=== PATIENT | male | born 1950 | race Caucasian/White ===

== ENCOUNTER → 2017-10-18 10:34 | Outpatient (CLI) | payer MEDICARE, OTHER, SELFPAY ==
--- NOTE | 2017-10-18 10:38 | DI.RAD.S_ITS ---
PROCEDURE: XR WRIST LT MIN 3V INDICATIONS: dorsal wrist deformity, previous untreated fracture TECHNIQUE: 4 views of the wrist were acquired. COMPARISON: None. FINDINGS: Bones: No acute fractures or dislocations. No suspicious bony lesions. Prominent dorsal beaking at the carpometacarpal junction on lateral view. This appears to involve the base of the second metacarpal. There is mild joint degeneration at triscaphe and basilar joint of the thumb. Scaphoid view: Normal scaphoid Soft tissues: No suspicious soft tissue calcifications. IMPRESSION: 1. Bony deformity over the dorsum of the carpometacarpal junction and laterally. 2. Mild lateral degenerative joint disease. Dictated by: Jb Davis M.D. on 10/18/2017 at 11:10 Approved by: Jb Davis M.D. on 10/18/2017 at 11:13
--- NOTE | 2017-10-18 10:38 | DI.RAD.S_ITS ---
PROCEDURE: XR HAND LT MIN 3V INDICATIONS: acute ring finger pain and weakness TECHNIQUE: 3 views of the hand(s) acquired. COMPARISON: None. FINDINGS: Bones: No fractures or dislocations. No osseous or joint abnormality seen involving the fourth ray. Carpal bones are normally aligned. No suspicious bony lesions. Prominent dorsal beaking is noted at the carpal metacarpal junction on lateral view. There is apparent joint degeneration at the triscaphe and first carpometacarpal joints. Soft tissues: No suspicious soft tissue calcifications. IMPRESSION: 1. No acute osseous abnormality. 2. Arthritic changes at the carpal/metacarpal junction laterally. Dictated by: Jb Davis M.D. on 10/18/2017 at 11:07 Approved by: Jb Davis M.D. on 10/18/2017 at 11:10
== END ==
PROVIDERS: Visit Provider Family Medicine
DX: M19.042 Primary osteoarthritis, left hand (principal); M19.032 Primary osteoarthritis, left wrist; M79.645 Pain in left finger(s)
CPT/HCPCS: 73110; 73130

== ENCOUNTER 2017-12-05 11:47 | Emergency (ER) | payer MEDICARE, OTHER, SELFPAY ==
[2017-12-05 11:50] VITALS: BP 160/80; PULSE 70; RESP 18; TEMP 36.7; O2SAT 99
--- NOTE | 2017-12-05 12:17 | ED_ITS ---
HPI - Abdominal Pain <Lotus Perez PA-C - Last Filed: 12/05/17 19:34> General Chief Complaint: Abdominal Pain Stated Complaint: POSSIBLE APPENDICITIS Time Seen by Provider: 12/05/17 12:16 Source: patient and family Mode of arrival: ambulatory Limitations: no limitations History of Present Illness HPI narrative: This 67 male comes in for evaluation of abdominal pain. States he was not able to see his PCP and walk-in clinic directed him here. He states he has had pain for 3 days, initially more midline and felt like a pulled muscle , but for the last 24 hr has been worsening and now is on the right side, also can feel it in his back on the right side, can't tell whether this radiates. He states that he is comfortable now at rest, but thinks that moving and bumping /walking increased pain. He states he has not eaten since 6 o'clock last night due to less appetite than usual. He states he had some brief heaves and nausea earlier, otherwise no nausea or vomiting. He states he has felt somewhat chilled today, no known fevers at home. He denies any chest pain or dyspnea, has had a bit of a dry cough developed in the last 24 hr. He denies any new pain or swelling in the extremities. He denies any dysuria, hematuria or other new urinary symptoms. He denies any change in bowel movements or blood in the stools or other complaints on systems review aside from salivating more Related Data Home Medications Medication Instructions Recorded Confirmed vit C,S-Dc-vvoag-lutein-zeaxan 1 tab PO BID 12/05/17 12/05/17 [PreserVision AREDS 2] Allergies Allergy/AdvReac Type Severity Reaction Status Date / Time No Known Drug Allergies Allergy Verified 10/18/17 09:48 Review of Systems <Lotus Perez PA-C - Last Filed: 12/05/17 19:34> Review of Systems All systems reviewed & are unremarkable except as noted in HPI and below Exam <Lotus Perez PA-C - Last Filed: 12/05/17 19:34> Narrative Exam Narrative: GENERAL APPEARANCE: Patient sitting comfortably, in no distress. HEENT: PERRL, EOMI, no scleral icterus, normal oropharynx NECK: Supple LUNGS: Clear to auscultation bilaterally. HEART: Rate and rhythm regular, normal S1 and S2, no S3 or S4. ABDOMEN: Soft, nondistended, bowel sounds present x 4 quadrants, no masses palpable, no hepatosplenomegaly. Exquisitely tender over the right mid to lower quadrants, some rebound, no guarding. Negative Hernandez sign. No tenderness on the left side. +right CVAT, none on the left EXTREMITIES: No edema, no cyanosis, no calf tenderness DERMATOLOGIC: No jaundice or exanthem NEUROLOGIC: Alert and oriented with normal speech and coordination Initial Vital Signs Initial Vital Signs: Vital Signs Temperature 98.1 F 12/05/17 11:50 Pulse Rate 70 12/05/17 11:50 Respiratory Rate 18 12/05/17 11:50 Blood Pressure 160/80 H 12/05/17 11:50 Pulse Oximetry 99 12/05/17 11:50 <Trina Solorzano DO - Last Filed: 12/06/17 07:55> Initial Vital Signs Initial Vital Signs: Vital Signs Temperature 98.1 F 12/05/17 11:50 Pulse Rate 70 12/05/17 11:50 Respiratory Rate 18 12/05/17 11:50 Blood Pressure 160/80 H 12/05/17 11:50 Pulse Oximetry 99 12/05/17 11:50 Course <Lotus Perez PA-C - Last Filed: 12/05/17 19:34> Additional Information: I reviewed findings and exam with Dr. Solorzano. Patient is feeling improved. She is agreeable with plan to discharge home, and we have scheduled follow-up with patient's PCP tomorrow morning. He and his both agreed that he would return if any acutely worsening symptoms, or new symptoms such as vomiting or fever Orders Ordered: Discontinued Medications Ketorolac Tromethamine (Toradol) 30 mg IV NOW ONE Stop: 12/05/17 12:37 Last Admin: 12/05/17 12:51 Dose: 30 mg Vital Signs - 8 hr 12/05/17 11:50 12/05/17 13:30 12/05/17 14:49 Temperature 98.1 F Pulse Rate 70 56 L 58 L Respiratory Rate 18 22 Blood Pressure 160/80 H Blood Pressure [Left Arm] 155/89 H 157/82 H Pulse Oximetry 99 93 98 12/05/17 15:57 Temperature Pulse Rate 55 L Respiratory Rate 16 Blood Pressure Blood Pressure [Left Arm] 156/84 H Pulse Oximetry 99 <Trina Solorzano DO - Last Filed: 12/06/17 07:55> Orders Ordered: Discontinued Medications Ketorolac Tromethamine (Toradol) 30 mg IV NOW ONE Stop: 12/05/17 12:37 Last Admin: 12/05/17 12:51 Dose: 30 mg Vital Signs - 8 hr 12/05/17 11:50 12/05/17 13:30 12/05/17 14:49 Temperature 98.1 F Pulse Rate 70 56 L 58 L Respiratory Rate 18 22 Blood Pressure 160/80 H Blood Pressure [Left Arm] 155/89 H 157/82 H Pulse Oximetry 99 93 98 12/05/17 15:57 Temperature Pulse Rate 55 L Respiratory Rate 16 Blood Pressure Blood Pressure [Left Arm] 156/84 H Pulse Oximetry 99 MDM - Abdominal Pain <Lotus Perez PA-C - Last Filed: 12/05/17 19:34> Lab Data Attestation: I reviewed the patient's lab results. Result diagrams: 12/05/17 12:49 12/05/17 12:49 Lab Results 12/05/17 12/05/17 12/05/17 Range/Units 12:49 12:49 13:10 WBC 6.8 (4.5-11.0) X10^3/uL RBC 4.72 (4.5-5.9) X10^6/uL Hgb 14.7 (13.5-17.5) g/dL Hct 43.6 (41-53) % MCV 92.5 (80-100) fL MCH 31.3 (26-34) PG MCHC 33.8 (30-36) % RDW 13.5 (11.6-14.8) % Plt Count 198 (150-400) X10^3/uL Neut % (Auto) 69.9 (50-75) % Lymph % (Auto) 17.4 L (25-40) % Baxter % (Auto) 9.8 (3-14) % Eos % (Auto) 2.2 (2-4) % Baso % (Auto) 0.7 (0-2) % Neut # (Auto) 4800 (3711-3959) /uL Sodium 143 (137-145) mmol/L Potassium 4.8 (3.4-5.1) mmol/L Chloride 106 (98-107) mmol/L Carbon Dioxide 29 (22-32) mmol/L BUN 14 (9-20) mg/dL Creatinine 0.80 (0.66-1.25) mg/dL Estimated GFR > 60.0 (>60) mL/min BUN/Creatinine Ratio 17.5 (6-22) Glucose 102 (80-110) mg/dL Lactate 1.2 (0.7-2.1) mmol/L Calcium 9.0 (8.4-10.2) mg/dL Total Bilirubin 1.0 (0.2-1.3) mg/dL AST 21 (17-59) IU/L ALT 23 (21-72) IU/L Alkaline Phosphatase 39 (38-126) U/L Total Protein 7.0 (6.3-8.2) g/dL Albumin 4.2 (3.5-5.0) g/dL Globulin 2.8 (1.7-4.1) g/dL Albumin/Globulin Ratio 1.5 (1.0-2.8) Lipase 60 (23-300) U/L Point of care testing: Urine Dip Bedside Urine Glucose Negative Bedside Urine Bilirubin - Negative Bedside Urine Ketone - Negative Urine Specific [place] 1.015 Bedside Urine Occult Blood - Negative Bedside Urine pH 6.0 Bedside Urine Protein - Negative Bedside Urine Urobilinogen - Negative Bedside Urine Nitrite - Negative Bedside Urine Leukocytes - Negative Esterase Imaging Data CT scan - abdomen: Radiologist's impression: View Report History [address] [address] [address] Scan Report Signed Patient: Bari Ellis MR#: [id number] : 1950 Acct:[id number] Age/Sex: 67 / M Date of Service: 12/05/17 Loc: ED Accession Number: [id number] Procedure: CT abdomen pelvis w con Ordering Provider: Lotus Perez P.A-C PROCEDURE: CT ABDOMEN PELVIS W CON INDICATIONS: right lower quad abd, flank pain TECHNIQUE: After the administration of oral and intravenous contrast, 5 mm thick sections acquired from the diaphragms to the symphysis. 5 mm thick coronal and sagittal reformats were performed. For radiation dose reduction, the following was used: automated exposure control, adjustment of mA and/or kV according to patient size. COMPARISON: None. FINDINGS: Image quality: Excellent. ABDOMEN: Lung bases: Lung bases are clear. Heart size is normal. Solid organs: Liver is normal in size and enhancement. Gallbladder is unremarkable. Biliary system is non-dilated. Pancreas enhances normally. Spleen is normal in size and enhancement. No adrenal nodules. Kidneys are normal in size and enhancement, without hydronephrosis. There is trace perinephric fat stranding. No striated nephrograms to suggest pyelonephritis. A low density cyst is present at the upper pole of the right kidney. Peritoneum and bowel: Stomach, small bowel, and colon loops are normal in caliber and wall thickness. The appendix is thin walled and gas filled. There are scattered sigmoid diverticula. No evidence for diverticulitis. No free fluid or air. Nodes and vessels: No retroperitoneal or mesenteric adenopathy. Aorta and inferior vena cava are normal in caliber. Miscellaneous: No ventral hernias. PELVIS: Genitourinary: Bladder is decompressed. There is trace perivesicular fat stranding. Miscellaneous: No inguinal adenopathy. There are small bilateral fat containing inguinal hernias. Bones: No suspicious bony lesions. No vertebral body compression fractures. IMPRESSION: 1. Mild perivesicular fat stranding. It is unclear whether this is related to bladder decompression or may represent early cystitis. Please correlate with urinalysis. 2. No other acute intra-abdominal findings. Normal appendix. 3. No hydronephrosis, hydroureter, or ureterolithiasis to explain flank pain. 4. Diverticulosis. No acute diverticulitis. These findings were discussed with Erlinda Hravey RN at 3:08 PM on 12/05/17. Dictated by: Nuzhat Martin M.D. on 12/05/2017 at 15:02 Approved by: Nuzhat Martin M.D. on 12/05/2017 at 15:11 <Trina Solorzano DO - Last Filed: 12/06/17 07:55> Lab Data Lab Results 12/05/17 12/05/17 12/05/17 Range/Units 12:49 12:49 13:10 WBC 6.8 (4.5-11.0) X10^3/uL RBC 4.72 (4.5-5.9) X10^6/uL Hgb 14.7 (13.5-17.5) g/dL Hct 43.6 (41-53) % MCV 92.5 (80-100) fL MCH 31.3 (26-34) PG MCHC 33.8 (30-36) % RDW 13.5 (11.6-14.8) % Plt Count 198 (150-400) X10^3/uL Neut % (Auto) 69.9 (50-75) % Lymph % (Auto) 17.4 L (25-40) % Baxter % (Auto) 9.8 (3-14) % Eos % (Auto) 2.2 (2-4) % Baso % (Auto) 0.7 (0-2) % Neut # (Auto) 4800 (0842-9576) /uL Sodium 143 (137-145) mmol/L Potassium 4.8 (3.4-5.1) mmol/L Chloride 106 (98-107) mmol/L Carbon Dioxide 29 (22-32) mmol/L BUN 14 (9-20) mg/dL Creatinine 0.80 (0.66-1.25) mg/dL Estimated GFR > 60.0 (>60) mL/min BUN/Creatinine Ratio 17.5 (6-22) Glucose 102 (80-110) mg/dL Lactate 1.2 (0.7-2.1) mmol/L Calcium 9.0 (8.4-10.2) mg/dL Total Bilirubin 1.0 (0.2-1.3) mg/dL AST 21 (17-59) IU/L ALT 23 (21-72) IU/L Alkaline Phosphatase 39 (38-126) U/L Total Protein 7.0 (6.3-8.2) g/dL Albumin 4.2 (3.5-5.0) g/dL Globulin 2.8 (1.7-4.1) g/dL Albumin/Globulin Ratio 1.5 (1.0-2.8) Lipase 60 (23-300) U/L Point of care testing: Urine Dip Bedside Urine Glucose Negative Bedside Urine Bilirubin - Negative Bedside Urine Ketone - Negative Urine Specific [place] 1.015 Bedside Urine Occult Blood - Negative Bedside Urine pH 6.0 Bedside Urine Protein - Negative Bedside Urine Urobilinogen - Negative Bedside Urine Nitrite - Negative Bedside Urine Leukocytes - Negative Esterase Discharge Plan Departure Patient Disposition: Home Clinical Impression: Abdominal pain Discharge Date/Time: 12/05/17 16:01 Interventions: ED Discharge Assessment Last Done: 12/05/17 16:01 Instructions: DI for Abdominal Pain-Adult Activity Restrictions/Additional Instructions: There was no specific source found for your pain today. It is possible that it is musculoskeletal as you were initially thinking. Please return as we talked about if you have any acutely worsening symptoms, or new symptoms such as fever or vomiting. Otherwise, we have given you and anti-inflammatory injection for today, and you can start Aleve, 2 tabs every 12 hr for pain either this evening or in the morning. Add Tylenol as needed. We have scheduled a follow-up appointment for you with Dr. Giles tomorrow at 10:15 a.m. as we talked about, it is very important to recheck this, so please be sure to attend the appointment Prescriptions: No Action vit C,T-Sz-ljpkk-lutein-zeaxan [PreserVision AREDS 2] [id number] mg-unit-mg- mg Capsule 1 tab PO BID RF: 0 Referrals: Miguel Giles MD [Physician] - <Trina Solorzano DO - Last Filed: 12/06/17 07:55> Cosign ED Attending Cosrandolphature Attestation: I was immediately available in the department for consultation. Documentation has been reviewed. I agree with assessment and plan.
[2017-12-05] MEDS: KETOROLAC 60 MG/2 ML VIAL 30 MG IV (12:51)
[2017-12-05 12:57] LABS: Add Manual Diff / Slide Review NO; Basophils Percent Auto 0.7 % (0-2); Eosinophils Percent Auto 2.2 % (2-4); Hematocrit 43.6 % (41-53); Hemoglobin 14.7 g/dL (13.5-17.5); Lymphocytes Percent Auto 17.4 % (25-40); Mean Corpuscular HGB Conc 33.8 % (30-36); Mean Corpuscular Hemoglobin 31.3 PG (26-34); Mean Corpuscular Volume 92.5 fL (80-100); Monocytes Percent Auto 9.8 % (3-14); Neutrophils Absolute Auto 4800 /uL (3000-5900); Neutrophils Percent Auto 69.9 % (50-75); Platelet Count 198 X10^3/uL (150-400); Red Blood Cell Count 4.72 X10^6/uL (4.5-5.9); Red Cell Distribution Width 13.5 % (11.6-14.8); White Blood Cell Count 6.8 X10^3/uL (4.5-11.0)
[2017-12-05 13:13] LABS: Alanine Aminotransferase 23 IU/L (21-72); Albumin 4.2 g/dL (3.5-5.0); Albumin Globulin Ratio 1.5 (1.0-2.8); Alkaline Phosphatase 39 U/L (38-126); Aspartate Aminotransferase 21 IU/L (17-59); BUN Creatinine Ratio 17.5 (6-22); Blood Urea Nitrogen 14 mg/dL (9-20); Carbon Dioxide 29 mmol/L (22-32); Chloride 106 mmol/L (98-107); Estimated Glomerular Filt Rate > 60.0 mL/min (>60); Globulin 2.8 g/dL (1.7-4.1); Glucose 102 mg/dL (80-110); HEMOLYSIS < 15 (0-50); Lipase 60 U/L (23-300); Potassium 4.8 mmol/L (3.4-5.1); Sodium 143 mmol/L (137-145)
--- NOTE | 2017-12-05 13:16 | DI.CT.S_ITS ---
PROCEDURE: CT ABDOMEN PELVIS W CON INDICATIONS: right lower quad abd, flank pain TECHNIQUE: After the administration of oral and intravenous contrast, 5 mm thick sections acquired from the diaphragms to the symphysis. 5 mm thick coronal and sagittal reformats were performed. For radiation dose reduction, the following was used: automated exposure control, adjustment of mA and/or kV according to patient size. COMPARISON: None. FINDINGS: Image quality: Excellent. ABDOMEN: Lung bases: Lung bases are clear. Heart size is normal. Solid organs: Liver is normal in size and enhancement. Gallbladder is unremarkable. Biliary system is non-dilated. Pancreas enhances normally. Spleen is normal in size and enhancement. No adrenal nodules. Kidneys are normal in size and enhancement, without hydronephrosis. There is trace perinephric fat stranding. No striated nephrograms to suggest pyelonephritis. A low density cyst is present at the upper pole of the right kidney. Peritoneum and bowel: Stomach, small bowel, and colon loops are normal in caliber and wall thickness. The appendix is thin walled and gas filled. There are scattered sigmoid diverticula. No evidence for diverticulitis. No free fluid or air. Nodes and vessels: No retroperitoneal or mesenteric adenopathy. Aorta and inferior vena cava are normal in caliber. Miscellaneous: No ventral hernias. PELVIS: Genitourinary: Bladder is decompressed. There is trace perivesicular fat stranding. Miscellaneous: No inguinal adenopathy. There are small bilateral fat containing inguinal hernias. Bones: No suspicious bony lesions. No vertebral body compression fractures. IMPRESSION: 1. Mild perivesicular fat stranding. It is unclear whether this is related to bladder decompression or may represent early cystitis. Please correlate with urinalysis. 2. No other acute intra-abdominal findings. Normal appendix. 3. No hydronephrosis, hydroureter, or ureterolithiasis to explain flank pain. 4. Diverticulosis. No acute diverticulitis. These findings were discussed with Erlinda Harvey RN at 3:08 PM on 12/05/17. Dictated by: Nuzhat Martin M.D. on 12/05/2017 at 15:02 Approved by: Nuzhat Martin M.D. on 12/05/2017 at 15:11
[2017-12-05 13:30] VITALS: BP 155/89; PULSE 56; RESP 22; O2SAT 93
[2017-12-05 13:40] LABS: Lactate (Lactic Acid) 1.2 mmol/L (0.7-2.1)
[2017-12-05 14:49] VITALS: BP 157/82; PULSE 58; O2SAT 98
[2017-12-05 15:57] VITALS: BP 156/84; PULSE 55; RESP 16; O2SAT 99
== END 2017-12-05 16:01 | disposition home or self-care (01) ==
PROVIDERS: Emergency Provider Internal Medicine
DX: R10.9 Unspecified abdominal pain (principal)
CPT/HCPCS: 36415; 36591; 74177; 80053; 81003; 83605; 83690; 85025; 96374; 99283; 99285; J1885; Q9967

== ENCOUNTER → 2018-11-11 13:06 | Outpatient (CLI) | payer MEDICARE, OTHER, SELFPAY ==
[2018-11-11 13:43] LABS: Add Manual Diff / Slide Review NO; Basophils Absolute Auto 100 /uL (0-100); Basophils Percent Auto 0.9 % (0-2); Eosinophils Absolute Auto 100 /uL (0-450); Eosinophils Percent Auto 1.8 % (2-4); Hematocrit 43.6 % (41-53); Hemoglobin 14.7 g/dL (13.5-17.5); Lymphocytes Absolute Auto 1300 /uL (1100-4500); Lymphocytes Percent Auto 20.6 % (25-40); Mean Corpuscular HGB Conc 33.7 % (30-36); Mean Corpuscular Hemoglobin 31.3 PG (26-34); Mean Corpuscular Volume 92.9 fL (80-100); Monocytes Absolute Auto 600 /uL (0-900); Monocytes Percent Auto 9.4 % (3-14); Neutrophils Absolute Auto 4300 /uL (1500-7000); Neutrophils Percent Auto 67.3 % (50-75); Platelet Count 189 X10^3/uL (150-400); Red Blood Cell Count 4.69 X10^6/uL (4.5-5.9); Red Cell Distribution Width 13.4 % (11.6-14.8); White Blood Cell Count 6.4 X10^3/uL (4.5-11.0)
[2018-11-11 14:08] LABS: Alanine Aminotransferase 19 IU/L (21-72); Albumin 4.3 g/dL (3.5-5.0); Albumin Globulin Ratio 1.6 (1.0-2.8); Alkaline Phosphatase 40 U/L (38-126); Aspartate Aminotransferase 23 IU/L (17-59); BUN Creatinine Ratio 26.3 (6-22); Blood Urea Nitrogen 21 mg/dL (9-20); Calcium 9.7 mg/dL (8.4-10.2); Carbon Dioxide 26 mmol/L (22-32); Chloride 105 mmol/L (98-107); Cholesterol 223 mg/dL (140-199); Estimated Glomerular Filt Rate > 60.0 mL/min (>60); Globulin 2.7 g/dL (1.7-4.1); Glucose 96 mg/dL (80-110); HDL Cholesterol 37 mg/dL (40-60); HEMOLYSIS < 15 (0-50); LDL Cholesterol Calculated 158 mg/dL (<100); Potassium 5.1 mmol/L (3.4-5.1); Sodium 140 mmol/L (137-145); Triglycerides 138 mg/dL (35-150)
== END ==
PROVIDERS: PCP Hospitalist; Visit Provider Hospitalist
DX: I10 Essential (primary) hypertension (principal)
CPT/HCPCS: 36415; 80053; 80061; 85025

== ENCOUNTER 2019-01-03 10:37 | Emergency (ER) | payer MEDICARE, OTHER, SELFPAY ==
[2019-01-03 11:12] VITALS: BP 118/78; PULSE 74; RESP 16; TEMP 36.3; O2SAT 99; BMI 34.8
--- NOTE | 2019-01-03 12:15 | DI.RAD.S_ITS ---
PROCEDURE: XR LUMBAR SPINE 2-3V INDICATIONS: bilateral non-traumatic Midback pain down to lumbar TECHNIQUE: 3 views of the lumbar spine were acquired. COMPARISON: [facility], CT, CT ABDOMEN PELVIS W CON, 12/05/2017, 14:11. FINDINGS: Bones: There are 5 lumbar-type vertebral bodies. The lowest intervertebral disk space is designated as L5-S1. The vertebral body heights are well-maintained without evidence to suggest an acute compression fracture. The bone mineralization is within normal limits. Moderate multilevel degenerative changes of the lumbar spine are more prominent involving the lower lumbar levels with moderate disc height loss and facet arthrosis. Additional areas of mild disc height loss and facet arthropathy are evident. Scattered anterior disc osteophyte complexes are present. Straightening of the normal lumbar lordosis is present without significant spondylolisthesis. Soft tissues: The soft tissues of the imaged abdomen and pelvis are within normal limits. IMPRESSION: 1. No acute fracture of the lumbar spine. 2. Moderate degenerative changes of the lumbar spine. Dictated by: Tam Bailey M.D. on 01/03/2019 at 11:56 Approved by: Tam Bailey M.D. on 01/03/2019 at 12:06
--- NOTE | 2019-01-03 12:16 | DI.RAD.S_ITS ---
PROCEDURE: XR THORACIC SPINE 3V INDICATIONS: bilateral non-traumatic Midback pain down to lumbar TECHNIQUE: 3 views of the thoracic spine were acquired. COMPARISON: [facility], CT, CT ABDOMEN PELVIS W CON, 12/05/2017, 14:11. FINDINGS: Bones: On the lateral views, the cervicothoracic junction is not adequately visualized. However, a compression deformity is not suspected on the frontal view. The vertebral body heights are within normal limits throughout the thoracic spine without evidence to suggest acute compression fracture. The bone mineralization is within normal limits. Moderate multilevel degenerative changes of the thoracic spine are present demonstrating areas of disc height loss and anterior disc osteophyte complexes. There is an elongated calcific structure identified along the dorsal aspect of the lower cervical spine, probably related to previous injury or calcification involving the ligamentous structures along the dorsal aspect of the cervical region. Soft tissues: The imaged overlying soft tissues of the chest are within normal limits. IMPRESSION: 1. The cervicothoracic junction is not adequately visualized. Subsequently, pathology within this region cannot be excluded. 2. No compression fractures of the imaged portions of the thoracic spine are present. 3. Moderate degenerative changes of the thoracic spine. Dictated by: Tam Bailey M.D. on 01/03/2019 at 11:52 Approved by: Tam Bailey M.D. on 01/03/2019 at 11:56
--- NOTE | 2019-01-03 12:35 | ED_ITS ---
HPI - Back Pain/Injury <ILYA Guzman - Last Filed: 01/03/19 22:30> General Chief Complaint: Back Pain/Injury Stated Complaint: threw his back out Time Seen by Provider: 01/03/19 11:55 Source: patient Mode of arrival: Ambulatory Limitations: no limitations History of Present Illness HPI Narrative: This is a 68-year-old male, nonsmoker, who presents with significant other with bilateral mid back pain down to lumbar and sacrum region who is ambulatory to ED but reports increasing pain. Patient reports pain started after he was raking the grounds 4 days ago. Patient reports right-sided is worse than left and describes pain as steady and sharp. Pain increases with any little movements. Patient denies incontinence of bladder or bowel, tingling or numbness or weakness to lower extremities, or saddle anesthesia. Patient denies fever, chills, nausea or vomiting, urinary symptoms. Patient reports he had similar pain in the past but usually after a several days the pain improves. Patient has been using warm and cool pack on his back, massage chair, and Tylenol without much help. Related Data Home Medications Medication Instructions Recorded Confirmed vit C,V-Jg-uvvin-lutein-zeaxan 1 tab PO BID 12/05/17 01/03/19 [PreserVision AREDS 2] Previous Rx's Medication Instructions Recorded fluticasone propionate 50 1 spray NASAL DAILY #16 gram 10/09/18 mcg/actuation nasal spray,suspension atorvastatin 10 mg tablet 10 mg PO DAILY #30 tab 11/12/18 cyclobenzaprine 10 mg PO TID PRN #10 tab 01/03/19 Allergies Allergy/AdvReac Type Severity Reaction Status Date / Time No Known Drug Allergies Allergy Verified 10/09/18 10:46 Review of Systems <ILYA Guzman - Last Filed: 01/03/19 22:30> Review of Systems ROS Unobtainable: All systems reviewed & are unremarkable except as noted in HPI and below PFSH <ILYA Guzman - Last Filed: 01/03/19 22:30> Medical History (Updated 01/03/19 @ 14:18 by ILYA Guzman) Arthritis of knee (Chronic 03/16/15) 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 Mother No problems noted. Social History Smoking Status: Never smoker alcohol intake: never substance use type: does not use Family History Father No problems noted. Mother No problems noted. Social History Smoking Status: Never smoker alcohol intake: never substance use type: does not use Exam <ILYA Guzman - Last Filed: 01/03/19 22:30> Narrative Exam Narrative: General appearance: well developed, well nourished, in no acute distress. Head: normocephalic, atraumatic, no scalp lesions, non-tender. Eye: pupil equal, round. EOMI. Nose: nares patent. Oral: mucosa moist. Neck/Thyroid: neck supple, full range of motion, no visible masses. Skin: no suspicious rashes, lesions over visible areas. Warm and dry. Heart: no clubbing, no cyanosis, no edema. Lungs: Breathing even and unlabored. No stridor. No accessory muscles used. Chest: normal shape and expansion. Abdomen: non-obese, non-distended. Neurologic: alert and oriented. Cognitive exam, LEAD CARGOMAN and PNS grossly intact on informal exam. Psych: good eye contact, normal affect. Initial Vital Signs Initial Vital Signs: Vital Signs Temperature 97.4 F L 01/03/19 11:12 Pulse Rate 74 01/03/19 11:12 Respiratory Rate 16 01/03/19 11:12 Blood Pressure 118/78 01/03/19 11:12 Pulse Oximetry 99 01/03/19 11:12 Back/Spine/Pelvis Thoracic/Lumbar Spine: thoracic and lumbar spine normal to inspection, No surgical scar(s) present, pain with thoraco-lumbar ROM, paraspinal tenderness (Bilateral), thoraco-lumbar ROM limited, lumbar spinal tenderness (Bilateral) and straight leg raise positive <Pedro Alegre DO - Last Filed: 01/10/19 23:59> Initial Vital Signs Initial Vital Signs: Vital Signs Temperature 97.4 F L 01/03/19 11:12 Pulse Rate 74 01/03/19 11:12 Respiratory Rate 16 01/03/19 11:12 Blood Pressure 118/78 01/03/19 11:12 Pulse Oximetry 99 01/03/19 11:12 Scores <ILYA Guzman - Last Filed: 01/03/19 22:30> GCS [place] coma scale eye opening: Spontaneous [place] coma scale verbal response: Orientated [place] coma scale motor response: Obey commands [place] coma scale total score: 15 Course <ILYA Guzman - Last Filed: 01/03/19 22:30> Orders Ordered: Discontinued Medications Cyclobenzaprine HCl (Flexeril) 10 mg PO NOW ONE Stop: 01/03/19 12:16 Last Admin: 01/03/19 12:49 Dose: 10 mg Documented by: MELY Ketorolac Tromethamine (Toradol) 60 mg IM NOW ONE Stop: 01/03/19 12:16 Last Admin: 01/03/19 12:50 Dose: 60 mg Documented by: MELY Vital Signs Vital signs: Vital Signs - 8 hr 01/03/19 11:12 01/03/19 14:06 Temperature 97.4 F L Pulse Rate 74 58 L Respiratory Rate 16 16 Blood Pressure 118/78 Blood Pressure [Right Arm] 145/89 H Pulse Oximetry 99 99 <DO Shannan Anne Last Filed: 01/10/19 23:59> Orders Ordered: Discontinued Medications Cyclobenzaprine HCl (Flexeril) 10 mg PO NOW ONE Stop: 01/03/19 12:16 Last Admin: 01/03/19 12:49 Dose: 10 mg Documented by: MELY Ketorolac Tromethamine (Toradol) 60 mg IM NOW ONE Stop: 01/03/19 12:16 Last Admin: 01/03/19 12:50 Dose: 60 mg Documented by: MELY Vital Signs Vital signs: Vital Signs - 8 hr 01/03/19 11:12 01/03/19 14:06 Temperature 97.4 F L Pulse Rate 74 58 L Respiratory Rate 16 16 Blood Pressure 118/78 Blood Pressure [Right Arm] 145/89 H Pulse Oximetry 99 99 MDM - Back Pain/Injury <ILYA Guzman - Last Filed: 01/03/19 22:30> Differential Diagnosis Differential diagnosis: Likely sciatica, strain of lumbar region and thoracic back pain Medical Records Attestation: I reviewed the patient's medical records. Lab Data Labs: Urine Dip Bedside Urine Glucose Negative Bedside Urine Bilirubin - Negative Bedside Urine Ketone - Negative Urine Specific [place] 1.020 Bedside Urine Occult Blood - Negative Bedside Urine pH 6.0 Bedside Urine Protein +/- 15 Bedside Urine Urobilinogen +/- 1mg Bedside Urine Nitrite - Negative Bedside Urine Leukocytes - Negative Esterase Imaging Data XR-Thoraci spine: Radiologist's impression: [address] [address] XRay Report Signed Patient: Bari Ellis GMR#: [id number] : 9Acct:[id number] Age/Sex: 68 / MDate of Service: 01/03/19 Loc: ED Accession Number: [id number] Procedure: XR thoracic spine 3V Ordering Provider: Steve Loco PROCEDURE: XR THORACIC SPINE 3V INDICATIONS: bilateral non-traumatic Midback pain down to lumbar TECHNIQUE: 3 views of the thoracic spine were acquired. COMPARISON: [facility], CT, CT ABDOMEN PELVIS W CON, 12/05/2017, 14:11. FINDINGS: Bones: On the lateral views, the cervicothoracic junction is not adequately visualized. However, a compression deformity is not suspected on the frontal view. The vert ebral body heights are within normal limits throughout the thoracic spine without evidence to suggest acute compression fracture. The bone mineralization is within normal limits. Moderate multilevel degenerative changes of the thoracic spine are present demonstrating areas of disc height loss and anterior disc osteophyte complexes. There is an elongated calcific structure identified along the dorsal aspect of the lower cervical spine, probably related to previous injury or calcification involving the ligamentous structures along the dorsal aspect of the cervical region. Soft tissues: The imaged overlying soft tissues of the chest are within normal limits. IMPRESSION: 1. The cervicothoracic junction is not adequately visualized. Subsequently, pathology within this region cannot be excluded. 2. No compression fractures of the imaged portions of the thoracic spine are present. 3. Moderate degenerative changes of the thoracic spine. Dictated by: Tam Bailey M.D. on 01/03/2019 at 11:52 Approved by: Tam Bailey M.D. on 01/03/2019 at 11:56 XR-Lumbar spine: Radiologist's impression: [address] [address] XRay Report Signed Patient: Bari Ellis GMR#: [id number] : 9Acct:[id number] Age/Sex: 68 / MDate of Service: 01/03/19 Loc: ED Accession Number: [id number] Procedure: XR lumbar spine 2-3V Ordering Provider: Steve Loco PROCEDURE: XR LUMBAR SPINE 2-3V INDICATIONS: bilateral non-traumatic Midback pain down to lumbar TECHNIQUE: 3 views of the lumbar spine were acquired. COMPARISON: [facility], CT, CT ABDOMEN PELVIS W CON, 12/05/2017, 14:11. FINDINGS: Bones: There are 5 lumbar-type vertebral bodies. The lowest intervertebral disk space is designated as L5-S1. The vertebral body heights are well-maintained without evidence to suggest an acute compression fracture. The bone mineralization is within normal limits. Moderate multilevel degenerative changes of the lumbar spine are more prominent involving the lower lumbar levels with moderate disc height loss and facet arthrosis. Additional areas of mild disc height loss and facet arthropathy are evident. Scattered anterior disc osteophyte complexes are present. Straightening of the normal lumbar lordosis is present without significant spondylolisthesis. Soft tissues: The soft tissues of the imaged abdomen and pelvis are within normal limits. IMPRESSION: 1. No acute fracture of the lumbar spine. 2. Moderate degenerative changes of the lumbar spine. Dictated by: Tam Bailey M.D. on 01/03/2019 at 11:56 Approved by: Tam Bailey M.D. on 01/03/2019 at 12:06 MDM Narrative Medical decision making narrative: This is a 68-year-old gentleman presents to the ED for an evaluation nontraumatic mid to low back pain. Patient denies fever, chills, nausea or vomiting, or urinary symptoms. There was no neurological and sensation deficit in his groin or lower extremities. Lumbar and thoracic X-ray tests were obtained and showed no acute findings such as compression fractures but showed degenerative changes in thoracic and lumbar spine. Patient was medicated with Ketoral IM and Flexeril p.o. medications and patient reports improving back pain. Patient advised to use aoxb-ptr-fohutue Tylenol and or Motrin as needed for discomfort and Flexeril for muscle relaxant as home treatment. Patient advised to follow up with his primary care physician next week for re-evaluation, possible referral to physical therapy, further imaging test if needed. Return precautions were discussed with the patient and significant other at the bedside and verbalized the understanding and agree with treatment plan. Flexeril medication precautions were discussed with the patient and spouse. <Pedro Alegre, - Last Filed: 01/10/19 23:59> Lab Data Labs: Urine Dip Bedside Urine Glucose Negative Bedside Urine Bilirubin - Negative Bedside Urine Ketone - Negative Urine Specific [place] 1.020 Bedside Urine Occult Blood - Negative Bedside Urine pH 6.0 Bedside Urine Protein +/- 15 Bedside Urine Urobilinogen +/- 1mg Bedside Urine Nitrite - Negative Bedside Urine Leukocytes - Negative Esterase Discharge Plan Departure Patient Disposition: Home Clinical Impression: Back pain Qualifiers: Back pain location: back pain in unspecified location Chronicity: acute Back pain laterality: bilateral Qualified Code(s): M54.9 - Dorsalgia, unspecified Discharge Date/Time: 01/03/19 14:40 Instructions: DI for Back Strain or Sprain Activity Restrictions/Additional Instructions: You have been diagnosed with [mid and low back pain. Per x-ray test on her thoracic and lumbar today, there is no acute findings per degenerative changes were seen ]. What to do: *Take your medications as directed. Please take jpyi-ocv-tqhiuga Tylenol and or Motrin as needed for discomfort. You can take Tylenol up to 4000 mg/24 hr period and 400-600 mg Motrin with food 3 times a day. You can use warm pack for muscle relaxant. Please take Flexeril for muscle relaxant and this may cause drowsiness so please take precautions. This prescription has been transmitted to [facility]. *Follow up with your primary care provider in 2-3 days, call for an appointment. Let them know you were seen in the ED and that we asked you to be seen in follow up. *Return to ED if you have any new, worsening, or concerning symptoms, such as [fever, chills, breathing difficulty, chest pain, tingling numbness or weakness to lower extremities, incontinence problems]. Prescriptions: New cyclobenzaprine 10 mg tablet 10 mg PO TID PRN (Reason: muscle spasm) Qty: 10 RF: 0 No Action atorvastatin [Lipitor] 10 mg tablet 10 mg PO DAILY Qty: 30 RF: 0 fluticasone propionate [Flonase Allergy Relief] 50 mcg/actuation spray,suspension 1 spray NASAL DAILY Qty: 16 RF: 3 PreserVision AREDS-2 [id number] pu-jnxa-jm-mg Capsule 1 tab PO BID RF: 0 Referrals: Inessa Donahue MD [Primary Care Provider] - <Pedro Alegre DO - Last Filed: 01/10/19 23:59> Sign Out Provider Sign Out Attestation: I was available for consultation during this patient's emergency department encounter
[2019-01-03] MEDS: CYCLOBENZAPRINE 10 MG TABLET PO (12:49)
[2019-01-03] MEDS: KETOROLAC 60 MG/2 ML VIAL IM (12:50)
[2019-01-03 14:06] VITALS: BP 145/89; PULSE 58; RESP 16; O2SAT 99
== END 2019-01-03 14:40 | disposition home or self-care (01) ==
PROVIDERS: Emergency Provider Nurse Practitioner Family; PCP Hospitalist
DX: M54.9 Dorsalgia, unspecified (principal)
CPT/HCPCS: 72072; 72100; 81003; 96372; 99283; J1885

== ENCOUNTER → 2020-02-02 14:36 | Outpatient (CLI) | payer MEDICARE, OTHER, SELFPAY ==
--- NOTE | 2020-02-02 14:39 | DI.RAD.S_ITS ---
PROCEDURE: XR HIP W PEL IF DONE RT 2V INDICATIONS: right hip pain TECHNIQUE: Right views of the hip were acquired. COMPARISON: None. FINDINGS: Bones: No fractures or dislocations. No suspicious bony lesions. The visualized pelvic ring appears intact. Mild degenerative change. Soft tissues: No suspicious soft tissue calcifications or masses. IMPRESSION: Mild right hip degenerative change. Dictated by: Kamran Snyder M.D. on 02/02/2020 at 15:05 Approved by: Kamran Snyder M.D. on 02/02/2020 at 15:05
--- NOTE | 2020-02-02 14:39 | DI.RAD.S_ITS ---
PROCEDURE: XR LUMBAR SPINE 2-3V INDICATIONS: Evaluate for low back pain and right-sided radiculopathy TECHNIQUE: 3 views of the lumbar spine were acquired. COMPARISON: [facility], , XR LUMBAR SPINE 2-3V, 01/03/2019, 12:15. FINDINGS: Bones: 5 [id number]-tax-dkdiqwc vertebrae are present. There is normal bony alignment. No vertebral body compression fractures. No suspicious bony lesions. Multilevel degenerative disc space loss. Lower lumbar facet arthropathy. Soft tissues: Overlying bowel gas pattern is normal. No suspicious soft tissue calcifications. IMPRESSION: Multilevel degenerative disc disease. Lower lumbar facet arthropathy. No evidence acute bony abnormality of the lumbar spine. If clinical suspicion and/or symptoms persist, further assessment with repeat plain films, or advanced imaging (e.g., CT, MRI, or bone scan) may be helpful for further assessment. Dictated by: Kamran Snyder M.D. on 02/02/2020 at 15:05 Approved by: Kamran Snyder M.D. on 02/02/2020 at 15:06
== END ==
PROVIDERS: PCP Family Medicine; Referring Provider Family Medicine; Visit Provider Family Medicine
DX: M51.16 Intervertebral disc disorders with radiculopathy, lumbar region (principal); M47.26 Other spondylosis with radiculopathy, lumbar region; M25.551 Pain in right hip; G89.29 Other chronic pain
CPT/HCPCS: 72100; 73502

== ENCOUNTER → 2020-02-03 11:58 | Outpatient (CLI) | payer MEDICARE, OTHER, SELFPAY ==
[2020-02-03 13:23] LABS: Hemoglobin A1C% w Est Avg Glu 5.6 % (4.0-6.0)
[2020-02-03 13:26] LABS: Alanine Aminotransferase 18 IU/L (<50); Albumin 4.2 g/dL (3.5-5.0); Albumin Globulin Ratio 1.5 (1.0-2.8); Alkaline Phosphatase 43 U/L (38-126); Aspartate Aminotransferase 23 IU/L (17-59); BUN Creatinine Ratio 27.6 (6-22); Bilirubin Total 0.8 mg/dL (0.2-1.3); Blood Urea Nitrogen 21 mg/dL (9-20); Calcium 9.2 mg/dL (8.4-10.2); Carbon Dioxide 31 mmol/L (22-32); Chloride 105 mmol/L (98-107); Cholesterol 207 mg/dL (140-199); Estimated Glomerular Filt Rate > 60.0 mL/min (>60); Globulin 2.8 g/dL (1.7-4.1); Glucose 103 mg/dL (80-110); HDL Cholesterol 40 mg/dL (40-60); HEMOLYSIS < 15 (0-50); LDL Cholesterol Calculated 139 mg/dL (<100); Sodium 140 mmol/L (137-145); Triglycerides 139 mg/dL (35-150)
== END ==
PROVIDERS: PCP Family Medicine; Referring Provider Family Medicine; Visit Provider Family Medicine
DX: E78.5 Hyperlipidemia, unspecified (principal)
CPT/HCPCS: 36415; 80053; 80061; 83036

== ENCOUNTER → 2020-02-05 08:46 | Outpatient (CLI) | payer MEDICARE, OTHER, SELFPAY | PROVIDERS: PCP Family Medicine; Referring Provider Family Medicine; Visit Provider Family Medicine | DX: M54.5 Low back pain (principal); Z53.20 Procedure and treatment not carried out because of patient's decision for unspecified reasons ==

== ENCOUNTER → 2020-02-18 14:02 | Outpatient (CLI) | payer MEDICARE, OTHER, SELFPAY ==
[2020-02-18 16:07] LABS: COVID19 -Nasal RAPID Negative (Negative)
== END ==
PROVIDERS: PCP Family Medicine; Visit Provider Physician Assistant
DX: Z03.818 Encounter for observation for suspected exposure to other biological agents ruled out (principal)
CPT/HCPCS: 87635

== ENCOUNTER → 2020-09-14 07:00 | Outpatient (CLI) | payer MEDICARE, OTHER, SELFPAY ==
--- NOTE | 2020-09-14 07:02 | DI.RAD.S_ITS ---
PROCEDURE: XR KNEE RT 3V INDICATIONS: right knee pain TECHNIQUE: 3 views of the knee were acquired. COMPARISON: None. FINDINGS: Bones: No fractures or dislocations. No suspicious bony lesions. Soft tissues: No joint effusion. No suspicious soft tissue calcifications. IMPRESSION: No trauma found, no effusion or intra-articular loose body is seen. Dictated by: Austen Hannah M.D. on 09/14/2020 at 9:44 Approved by: Austen Hannah M.D. on 09/14/2020 at 9:45
--- NOTE | 2020-09-14 07:02 | DI.RAD.S_ITS ---
PROCEDURE: XR WRIST RT MIN 3V INDICATIONS: right wrist pain TECHNIQUE: A total of 4 views of the wrist were acquired. COMPARISON: [facility], CR, XR WRIST LT MIN 3V, 10/18/2017, 10:39. No prior ir right-side evaluation of the hand or wrist is available. FINDINGS: Bones: No definite fractures or dislocations. On 1 of the Four views there is a longitudinally oriented lucency involving the distal radius adjacent to the ulna, but this does not extend through the cortical margin proximally. This may simply represent a tissue plane as cause of that finding open (such as a fat plane between muscles). No suspicious bony lesions. Scaphoid view: No trauma. Soft tissues: No suspicious soft tissue calcifications. IMPRESSION: No definite trauma found. Longitudinally oriented lucency is considered more likely to represent a fat plane superimposed on the medial aspect of the distal radius than a partially hidden fracture. Delayed plain films in 4-6 days could be obtained to more accurately assess this area if clinically warranted. Dictated by: Austen Hannah M.D. on 09/14/2020 at 9:45 Approved by: Austen Hannah M.D. on 09/14/2020 at 9:48
== END ==
PROVIDERS: PCP Family Medicine; Referring Provider Family Medicine; Visit Provider Family Medicine
DX: M25.531 Pain in right wrist (principal); Z98.890 Other specified postprocedural states; M25.561 Pain in right knee
CPT/HCPCS: 73110; 73562

== ENCOUNTER → 2022-05-31 08:46 | Outpatient (CLI) | payer MEDICARE, OTHER, SELFPAY ==
[2022-05-31 10:17] LABS: Add Manual Diff / Slide Review NO; Basophils Absolute Auto 0 /uL (0-100); Basophils Percent Auto 0.8 % (0-2); Eosinophils Absolute Auto 200 /uL (0-450); Eosinophils Percent Auto 3.6 % (2-4); Hematocrit 43.6 % (41-53); Hemoglobin 14.3 g/dL (13.5-17.5); Lymphocytes Absolute Auto 1300 /uL (1100-4500); Lymphocytes Percent Auto 21.6 % (25-40); Mean Corpuscular HGB Conc 32.7 % (30-36); Mean Corpuscular Hemoglobin 30.5 PG (26-34); Mean Corpuscular Volume 93.3 fL (80-100); Monocytes Absolute Auto 500 /uL (0-900); Neutrophils Absolute Auto 3900 /uL (1500-7000); Platelet Count 202 X10^3/uL (150-400); Red Blood Cell Count 4.68 X10^6/uL (4.5-5.9); Red Cell Distribution Width 13.6 % (11.6-14.8); White Blood Cell Count 5.9 X10^3/uL (4.5-11.0)
[2022-05-31 10:35] LABS: Alanine Aminotransferase 19 IU/L (<50); Albumin 4.2 g/dL (3.5-5.0); Albumin Globulin Ratio 1.4 (1.0-2.8); Alkaline Phosphatase 45 U/L (38-126); Aspartate Aminotransferase 22 IU/L (17-59); BUN Creatinine Ratio 26.3 (6-22); Bilirubin Total 1.1 mg/dL (0.2-1.3); Blood Urea Nitrogen 21 mg/dL (9-20); Calcium 8.9 mg/dL (8.4-10.2); Carbon Dioxide 27 mmol/L (22-32); Chloride 103 mmol/L (98-107); Cholesterol 214 mg/dL (140-199); Estimated Glomerular Filt Rate > 60 mL/min (>60); Globulin 3.1 g/dL (1.7-4.1); Glucose 93 mg/dL (80-110); HDL Cholesterol 42 mg/dL (40-60); HEMOLYSIS < 15 (0-50); LDL Cholesterol Calculated 148 mg/dL (<100); Potassium 4.4 mmol/L (3.4-5.1); Sodium 139 mmol/L (137-145); Total Protein 7.3 g/dL (6.3-8.2); Triglycerides 121 mg/dL (35-150)
[2022-05-31 11:05] LABS: Prostate Specific Antigen Scrn 0.669 ng/mL (0.1-4.0)
[2022-05-31 11:08] LABS: TSH w/ Reflex to FT4 5.19 uIU/mL (0.47-4.68)
[2022-05-31 11:19] LABS: Hemoglobin A1C% w Est Avg Glu 5.3 % (4.0-6.0)
[2022-05-31 11:55] LABS: Free T4, Direct Thyroxine 0.97 ng/dL (0.78-2.19)
[2022-05-31 16:01] LABS: Microalbumin Urine Random 0.6 mg/dL (0-1.6)
[2022-05-31 16:19] LABS: Creatinine Urine Random 149.3 mg/dL
== END ==
PROVIDERS: PCP Family Medicine; Referring Provider Family Medicine; Visit Provider Family Medicine
DX: E78.5 Hyperlipidemia, unspecified (principal); Z12.5 Encounter for screening for malignant neoplasm of prostate; G47.00 Insomnia, unspecified; I10 Essential (primary) hypertension
CPT/HCPCS: 36415; 80053; 80061; 82043; 82570; 83036; 84439; 84443; 85025; G0103

== ENCOUNTER 2022-07-28 14:38 | Day surgery (SDC) | payer MEDICARE, OTHER, SELFPAY ==
[2022-07-28] VITALS (7 sets, daily range): BP systolic 111–157; BP diastolic 66–84; PULSE 52–75; RESP 15–24; TEMP 36–36.7; O2SAT 93–100; BMI 33.9
--- NOTE | 2022-07-28 | PATH_ITS ---
[facility] Accession Number: [id number] No. of containers..03 Tissue . 01 Material submitted: . PART A: cecum - CECAL POLYP PART B: colon - RIGHT COLON POLYPS X 3 PART C: colon - TRANSVERSE COLON POLYP . 01 Diagnosis: A. Cecum, Polyp, Biopsy: Tubular adenoma. . B. Right Colon, Polyp x3, Biopsies: Tubular adenomas. . C. Transverse Colon, Polyp, Biopsy: Tubular adenoma. [facility] 08/02/2022 0645 Local . 01 Electronically signed: . Viridiana Sanders MD, Pathologist NPI- [id number] . 01 Gross description: . Part A: CECAL POLYP: Received in formalin are 3 fragment(s) of vasquez, soft tissue measuring 0.1 x 0.1 x 0.1 cm to 0.4 x 0.3 x 0.1 cm submitted entirely in 1 cassette(s) Part B: RIGHT COLON POLYPS X 3: Received in formalin are multiple fragment(s) of vasquez, soft tissue measuring 0.1 x 0.1 x 0.1 cm to 0.3 x 0.2 x 0.2 cm submitted entirely in 1 cassette(s) Part C: TRANSVERSE COLON POLYP: Received in formalin are 3 fragment(s) of vasquez, soft tissue measuring 0.1 x 0.1 x 001 cm to 0.3 x 0.3 x 0.2 cm submitted entirely in 1 cassette(s) /NICOLLE 07/31/2022 192 Local . 01 Pathologist provided ICD-10: D12.0, D12.6, D12.3 . 01 CPT . 908822, 667067, 109161 Specimen Comment: A courtesy copy of this report has been sent to [facility] Pathology Performed at: 01 [facility] [address], [place], [place] [id number] MD Gregg Gonzalez MD Phone: [phone]
[2022-07-28] MEDS: LACTATED RINGERS 1,000 ML 84 ML IV (15:08)
--- NOTE | 2022-07-28 15:37 | P.HP_ITS ---
History of Present Illness History of Present Illness Date Patient Seen: 07/28/22 Time Patient Seen: 15:38 Chief complaint: Screening Colonoscopy Narrative: Mr. Ellis presents today for screening colonoscopy. His last colonoscopy was in June 2005 and he has some papers that are documents from this encounter but the actual colonoscopy report and or pathology results are not available for me to review. He does think that he had a few polyps at that time. He is pretty sure that it has been longer than it ought to have been for follow-up. He has no family history of colon cancer and had does not have any concerning symptoms however he is complaining of what he describes as a ?knot? in his left lower quadrant that occurs sometimes when he has to strain to have a bowel movement. This has been going on for about a month or so and Dr. Joy is his primary care physician who has recommended that he proceed with a colonoscopy. [facility] Medical History (Updated 07/28/22 @ 15:40 by Ashley Miguel MD) Arthritis of knee (03/16/15) Basal cell carcinoma Chronic low back pain with sciatica 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 Mother No problems noted. Social History household members: spouse Smoking Status: Never smoker alcohol intake: never substance use type: does not use Meds Home Medications and Allergies Home Medications Medication Instructions Recorded Confirmed Type vit C 250 mg-vit E 90 mg-zinc 40 1 tab PO BID 12/05/17 06/19/22 History mg-copper 1 xq-jijeos-nrohvn capsule (PreserVision AREDS-2) arginine (L-arginine) 500 mg mg PO 04/17/22 06/19/22 History capsule atorvastatin 20 mg tablet (Lipitor) 20 mg PO DAILY #90 tabs 06/19/22 07/28/22 Rx sodium,potassium,mag sulfates 17.5 See Rx Instructions PO .COMPLEX 07/24/22 Rx gram-3.13 gram-1.6 gram oral soln #354 mL (Suprep Bowel Prep Kit) Allergies Allergy/AdvReac Type Severity Reaction Status Date / Time No Known Drug Allergies Allergy Verified 07/28/22 14:54 Exam Vital Signs (past 8 hours): - 07/28/22 14:55 Temperature 96.8 F L Pulse Rate 75 Respiratory Rate 16 Blood Pressure 157/82 H Pulse Oximetry 99 Oxygen Delivery Method Room Air Oxygen Delivery Method Room Air Const General: cooperative, healthy appearing, comfortable and No acute distress Nutritional Appearance: obese Eyes General: appearance normal, both eyes and all related structures Resp Effort & Inspection: normal respiratory effort and able to speak in complete sentences GI Palpation: soft and tender (Mild suprapubic, left lower quadrant tenderness with palpation. ) Assessment & Plan Assessment and plan (1) History of colon polyps: Status: Acute (2) Colon cancer screening: Status: Acute Plan Mr. Ellis Presents today for screening colonoscopy. I discussed the risks benefits and alternatives including but not limited to perforation of the colon and an incomplete exam he fully understands these risks and would like to proceed.
--- NOTE | 2022-07-28 16:44 | PM.OP.COLON ---
Operative Date/Time/Diagnoses Date of procedure: 07/28/22 Time of procedure: 16:44 Pre-op diagnosis: Colon cancer screening, history of polyps, left lower quadrant pain and constipation Post-op diagnosis: same Procedure & Clinicians Study performed: Colonoscopy and biopsy Same procedure as scheduled: Yes Surgeon: Ashley Miguel Procedure Notes Procedure in detail: Patient was taken to the endoscopy suite placed in left lateral decubitus position. A time-out was performed. Our anesthesiologist induced conscious sedation and maintained this throughout the case. A digital rectal exam was performed and there were no masses or strictures. The colonoscope was introduced into the anal canal and advanced through to the cecum. Some abdominal pressure was required to reach the cecal area. A photograph was obtained of the appendiceal orifice. The prep was good Nelson bowel prep score of 2. There were several diverticula seen upon entry into the colon especially in the sigmoid colon. There was 1 very small cecal polyp which was removed with a biopsy forceps. The colonoscope was then withdrawn slowly for 20 minutes. On the right colon just outside the cecum on a flap of colon opposite the side of the scope some small polyps were seen. Upon further inspection of this area and attempts to biopsy it was clear that there were 3 separate small polyps. Each were removed with biopsy forceps though due to the location there was some difficulty. Ultimately each was removed completely. Finally upon further withdrawal there was a decently large probably approximately 8mm transverse colon polyp that was removed with the biopsy forceps but required 2 separate bites to fully remove it. The scope was removed from the rest of the colon and retroflexed. A photograph was taken and the hemorrhoidal piles appeared normal. Patient tolerated the procedure well and went in good condition to postoperative care unit. Findings: divertiulosis and polyp(s) Specimen(s): other (1. Cecal polyp 2. Right colon polyps x3 3. Transverse colon polyp) Complications: none Post-procedure Plan for aftercare: Follow-up colonoscopy in 3-5 years depending on pathology of these polyps. Also recommend fiber supplementation her discharge instructions. Discussed with his Veronica in the surgical waiting area after the colonoscopy.
== END 2022-07-28 17:28 | disposition home or self-care (01) ==
PROVIDERS: PCP Family Medicine; Referring Provider Surgery; Visit Provider Surgery
PROC: 0DJD8ZZ Inspection of Lower Intestinal Tract, Via Natural or Artificial Opening Endoscopic (ICD-10-PCS; CPT 45378; principal; 2022-07-28 16:30)
DX: R10.32 Left lower quadrant pain (principal); K59.00 Constipation, unspecified; Z86.010 Personal history of colon polyps; K57.30 Diverticulosis of large intestine without perforation or abscess without bleeding; D12.0 Benign neoplasm of cecum; D12.2 Benign neoplasm of ascending colon; D12.3 Benign neoplasm of transverse colon
CPT/HCPCS: 45380; J2704

== ENCOUNTER 2022-07-30 10:10 | Emergency (ER) | payer MEDICARE, OTHER, SELFPAY ==
[2022-07-30] VITALS (18 sets, daily range): BP systolic 162–194; BP diastolic 75–96; PULSE 48–68; RESP 14–31; TEMP 36.4; O2SAT 95–99; BMI 33.9
--- NOTE | 2022-07-30 10:29 | DI.RAD.S_ITS ---
PROCEDURE: XR CHEST 1V INDICATIONS: chest pain TECHNIQUE: One view of the chest was acquired. COMPARISON: None. FINDINGS: Surgical changes and devices: None. Lungs and pleura: Lungs are clear. No pleural effusions or pneumothorax. Mediastinum: Mediastinal contours appear normal. Heart size is normal. Bones and chest wall: No suspicious bony lesions. Overlying soft tissues appear unremarkable. IMPRESSION: No acute cardiopulmonary findings Approved by: Andrew Herr M.D. on 07/30/2022 at 11:33
[2022-07-30 10:41] LABS: Add Manual Diff / Slide Review NO; Basophils Absolute Auto 100 /uL (0-100); Eosinophils Absolute Auto 200 /uL (0-450); Eosinophils Percent Auto 2.2 % (2-4); Hematocrit 40.7 % (41-53); Hemoglobin 13.8 g/dL (13.5-17.5); Lymphocytes Absolute Auto 1300 /uL (1100-4500); Lymphocytes Percent Auto 17.5 % (25-40); Mean Corpuscular HGB Conc 33.9 % (30-36); Mean Corpuscular Hemoglobin 31.3 PG (26-34); Mean Corpuscular Volume 92.2 fL (80-100); Monocytes Absolute Auto 700 /uL (0-900); Monocytes Percent Auto 9.3 % (3-14); Neutrophils Absolute Auto 5200 /uL (1500-7000); Platelet Count 197 X10^3/uL (150-400); Red Blood Cell Count 4.41 X10^6/uL (4.5-5.9); Red Cell Distribution Width 13.3 % (11.6-14.8); White Blood Cell Count 7.5 X10^3/uL (4.5-11.0)
--- NOTE | 2022-07-30 10:42 | ED_ITS ---
HPI - Dizziness General Chief Complaint: Dizziness Stated Complaint: high BP after colonoscopy 07/28 Time Seen by Provider: 07/30/22 10:30 Source: patient and family Mode of arrival: Wheelchair History of Present Illness HPI Narrative: Patient is a 71-year-old male history of hyperlipidemia, he had a colonoscopy 2 days ago routine colon cancer screening. Presents today with dizziness. He says that he was doing well yesterday got up moved around. A little bit of abdominal discomfort but not too bad. Woke up this morning and felt extremely dizzy worse when he stood up felt dizzy at rest as well. No nausea or vomiting. [place] slightly flushed. thought he was acting a little bit weird but no facial droop or difficulty speaking. No numbness tingling or weakness. No chest pain or palpitations. He does report shaking and feeling cold however he always reports feeling cold but this may be a little more extreme. Related Data Home Medications Medication Instructions Recorded Confirmed vit C 250 mg-vit E 90 mg-zinc 40 1 tab PO BID 12/05/17 06/19/22 mg-copper 1 [id number] capsule (PreserVision AREDS-2) arginine (L-arginine) 500 mg mg PO 04/17/22 06/19/22 capsule Previous Rx's Medication Instructions Recorded atorvastatin 20 mg tablet (Lipitor) 20 mg PO DAILY #90 tabs 06/19/22 psyllium husk (with sugar) 3.4 1 tbsp PO BID #822 grams 07/28/22 gram/7 gram oral powder (Fiber (psyllium husk-sugar)) meclizine 25 mg tablet 25 mg PO TID PRN dizziness #10 tabs 07/30/22 ondansetron 4 mg disintegrating 4 mg PO Q8H PRN nausea and 07/30/22 tablet vomiting #10 tabs Allergies Allergy/AdvReac Type Severity Reaction Status Date / Time No Known Drug Allergies Allergy Verified 07/28/22 14:54 Review of Systems Review of Systems ROS Unobtainable: All systems reviewed & are unremarkable except as noted in HPI and below Patient History Medical History Arthritis of knee (03/16/15) Basal cell carcinoma Chronic low back pain with sciatica 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 Mother No problems noted. Social History household members: spouse Smoking Status: Never smoker alcohol intake: never substance use type: does not use Smoking Status: Never smoker alcohol intake frequency: holidays/special occasions only Substance Use Type: does not use Exam Initial Vital Signs Initial Vital Signs: Vital Signs Temperature 97.5 F L 07/30/22 10:24 Pulse Rate 68 07/30/22 10:24 Respiratory Rate 18 07/30/22 10:24 Blood Pressure 172/96 H 07/30/22 10:24 Pulse Oximetry 99 07/30/22 10:24 Oxygen Delivery Method Room Air 07/30/22 10:24 GENERAL: Alert pleasant 71-year-old and in no acute distress. HEENT: Head atraumatic,EOMI, pupils reactive, no nystagmus face symmetric, moist mucous membranes CARDIOVASCULAR: Regular rate and rhythm without murmurs, rubs or gallops. RESPIRATORY: Breath sounds equal bilaterally, no wheezes rales or rhonchi. ABDOMEN: Soft, nontender. Normoactive bowel sounds all 4 quadrants. No guarding or rebound. EXTREMITIES: Normal range of motion, no clubbing or edema. Neurovascularly intact NEUROLOGICAL: Alert and oriented x4.Normal gait and speech. Cranial nerves II through XII grossly intact. Good [id number], good idmf-[id number], strength equal bilaterally, no dysarthria or aphasia, sensation in tact to soft touch bilaterally, no visual changes, no facial droop SKIN: Warm, dry, no laceration, no petechiae, no rashes or lesions. Scores NIH Stroke Scale Level of Conciousness: Alert, keenly responsive Ask month/age: Answers both questions correctly. Open/close eyes, close hand: Performs both tasks correctly Best gaze horizontal: Normal Visual galvan: No visual loss Facial palsy: Normal symetrical movement Left arm drift: No drift for full 10 sec Right arm drift: No drift for full 10 sec Left leg drift: No drift for full 5 sec Right leg drift: No drift for full 5 sec Limb ataxia: Absent Sensory on face/arms/legs: Normal, no sensory loss Best language: No aphasia, normal Dysarthria: Normal Extinction or inattention: No abnormality Total NIH Stroke scale score: 0 Course Orders Ordered: ED Orders 07/30/22 10:29 XR chest 1V Stat 07/30/22 10:34 COVID19 -Nasal RAPID Stat Complete Blood Count AUTO DIFF Stat Comprehensive Metabolic Panel Stat Lactate (Lactic Acid) Stat Lipase Stat Magnesium Stat PTT Partial Thromboplastin Shamir Stat Prothrombin Time INR Stat Troponin & CK Cardiac Panel Stat 07/30/22 10:43 CT abdomen pelvis w con Stat CT head/brain wo con Stat 07/30/22 12:25 Urine Microscopic Stat 07/30/22 13:45 CT angio head and neck Stat Discontinued Medications Aspirin (Aspirin 81 Mg Chew Tab) 324 mg PO NOW ONE Stop: 07/30/22 10:29 Last Admin: 07/30/22 10:43 Dose: Not Given Documented By: KAREN Sodium Chloride (Normal Saline 0.9%) 1,000 mls @ 1,000 mls/hr IV BOLUS ONE Stop: 07/30/22 11:42 Last Infusion: 07/30/22 12:20 Dose: 0 mls/hr Documented By: Admin: 07/30/22 10:49 Dose: 1,000 mls/hr Documented By: KAREN Meclizine HCl (Meclizine Hcl 12.5 Mg Tablet) 25 mg PO NOW ONE Stop: 07/30/22 13:41 Last Admin: 07/30/22 13:50 Dose: 25 mg Documented By: NO Ondansetron HCl (Ondansetron 4 Mg/2 Ml Inj) 4 mg IV NOW ONE Stop: 07/30/22 10:44 Last Admin: 07/30/22 10:50 Dose: 4 mg Documented By: KAREN Vital Signs Vital signs: Vital Signs - 8 hr 07/30/22 10:40 07/30/22 11:00 07/30/22 11:42 Pulse Rate 61 55 L 62 Respiratory Rate 31 H 24 22 Blood Pressure Pulse Oximetry 98 95 97 Oxygen Delivery Method 07/30/22 11:46 07/30/22 11:46 07/30/22 12:00 Pulse Rate 59 L 58 L Respiratory Rate 22 26 H Blood Pressure 179/86 H Pulse Oximetry 96 Oxygen Delivery Method Room Air 07/30/22 12:30 07/30/22 13:00 07/30/22 13:30 Pulse Rate 51 L 48 L 48 L Respiratory Rate 14 16 17 Blood Pressure Pulse Oximetry 97 99 99 Oxygen Delivery Method 07/30/22 13:34 07/30/22 13:37 07/30/22 14:15 Pulse Rate 51 L 66 Respiratory Rate 23 14 Blood Pressure 194/88 H Pulse Oximetry 98 96 Oxygen Delivery Method 07/30/22 14:16 07/30/22 14:16 07/30/22 14:30 Pulse Rate 62 Respiratory Rate 14 Blood Pressure 171/86 H 162/79 H Pulse Oximetry 95 Oxygen Delivery Method 07/30/22 14:30 07/30/22 15:00 07/30/22 15:00 Pulse Rate 58 L 53 L Respiratory Rate 21 16 Blood Pressure 171/75 H Pulse Oximetry 97 96 Oxygen Delivery Method 07/30/22 15:30 07/30/22 15:31 07/30/22 15:31 Pulse Rate 53 L 51 L Respiratory Rate 17 21 Blood Pressure 167/77 H Pulse Oximetry 97 97 Oxygen Delivery Method 07/30/22 16:00 07/30/22 16:00 Pulse Rate 64 Respiratory Rate Blood Pressure 176/83 H Pulse Oximetry 95 Oxygen Delivery Method MDM - Dizziness Lab Data 07/30/22 10:34 07/30/22 10:34 Labs: Lab Results 07/30/22 07/30/22 07/30/22 Range/Units 10:34 10:34 10:34 WBC 7.5 (4.5-11.0) X10^3/uL RBC 4.41 L (4.5-5.9) X10^6/uL Hgb 13.8 (13.5-17.5) g/dL Hct 40.7 L (41-53) % MCV 92.2 (80-100) fL MCH 31.3 (26-34) PG MCHC 33.9 (30-36) % RDW 13.3 (11.6-14.8) % Plt Count 197 (150-400) X10^3/uL Neut % (Auto) 70.0 (50-75) % Lymph % (Auto) 17.5 L (25-40) % [place] % (Auto) 9.3 (3-14) % Eos % (Auto) 2.2 (2-4) % Baso % (Auto) 1.0 (0-2) % Neut # (Auto) 5200 (8556-4239) /uL Lymph # (Auto) 1300 (0413-4716) /uL [place] # (Auto) 700 (0-900) /uL Eos # (Auto) 200 (0-450) /uL Baso # (Auto) 100 (0-100) /uL PT 12.7 (10.1-12.7) SECONDS INR 1.1 (0.9-1.3) APTT 33 (26-36) SECONDS Sodium 140 (137-145) mmol/L Potassium 4.4 (3.4-5.1) mmol/L Chloride 107 (98-107) mmol/L Carbon Dioxide 27 (22-32) mmol/L BUN 21 H (9-20) mg/dL Creatinine 0.77 (0.66-1.25) mg/dL Estimated GFR > 60 (>60) mL/min BUN/Creatinine Ratio 27.3 H (6-22) Glucose 121 H (80-110) mg/dL Lactate (0.7-2.1) mmol/L Calcium 8.9 (8.4-10.2) mg/dL Magnesium 2.3 (1.6-2.3) mg/dL Total Bilirubin 1.1 (0.2-1.3) mg/dL AST 39 (17-59) IU/L ALT 25 (<50) IU/L Alkaline Phosphatase 27 L (38-126) U/L Total Creatine Kinase 209 H (55-170) U/L CK-MB (CK-2) 3.13 H (<2.37) ng/mL CK-MB (CK-2) Rel Index 1.5 (1.5-5.0) % Troponin I < 0.012 (0.01-0.034) ng/mL Total Protein 7.6 (6.3-8.2) g/dL Albumin 4.3 (3.5-5.0) g/dL Globulin 3.3 (1.7-4.1) g/dL Albumin/Globulin Ratio 1.3 (1.0-2.8) Lipase 66 (23-300) U/L Urine RBC (0-5/HPF) Urine WBC (0-5/HPF) Urine Bacteria (None) Ur Culture Indicated? SARS-CoV-2 (PCR) (Negative) 07/30/22 07/30/22 07/30/22 Range/Units 10:34 10:34 12:25 WBC (4.5-11.0) X10^3/uL RBC (4.5-5.9) X10^6/uL Hgb (13.5-17.5) g/dL Hct (41-53) % MCV (80-100) fL MCH (26-34) PG MCHC (30-36) % RDW (11.6-14.8) % Plt Count (150-400) X10^3/uL Neut % (Auto) (50-75) % Lymph % (Auto) (25-40) % [place] % (Auto) (3-14) % Eos % (Auto) (2-4) % Baso % (Auto) (0-2) % Neut # (Auto) (8091-3804) /uL Lymph # (Auto) (2469-9903) /uL [place] # (Auto) (0-900) /uL Eos # (Auto) (0-450) /uL Baso # (Auto) (0-100) /uL PT (10.1-12.7) SECONDS INR (0.9-1.3) APTT (26-36) SECONDS Sodium (137-145) mmol/L Potassium (3.4-5.1) mmol/L Chloride (98-107) mmol/L Carbon Dioxide (22-32) mmol/L BUN (9-20) mg/dL Creatinine (0.66-1.25) mg/dL Estimated GFR (>60) mL/min BUN/Creatinine Ratio (6-22) Glucose (80-110) mg/dL Lactate 1.6 (0.7-2.1) mmol/L Calcium (8.4-10.2) mg/dL Magnesium (1.6-2.3) mg/dL Total Bilirubin (0.2-1.3) mg/dL AST (17-59) IU/L ALT (<50) IU/L Alkaline Phosphatase (38-126) U/L Total Creatine Kinase (55-170) U/L CK-MB (CK-2) (<2.37) ng/mL CK-MB (CK-2) Rel Index (1.5-5.0) % Troponin I (0.01-0.034) ng/mL Total Protein (6.3-8.2) g/dL Albumin (3.5-5.0) g/dL Globulin (1.7-4.1) g/dL Albumin/Globulin Ratio (1.0-2.8) Lipase (23-300) U/L Urine RBC None seen (0-5/HPF) Urine WBC 0-1/hpf (0-5/HPF) Urine Bacteria None seen (None) Ur Culture Indicated? Cult not indicated SARS-CoV-2 (PCR) Negative (Negative) Urine Dip Bedside Urine Glucose Negative Bedside Urine Bilirubin - Negative Bedside Urine Ketone - Negative Urine Specific [place] 1.015 Bedside Urine Occult Blood +/- Bedside Urine pH 6.0 Bedside Urine Protein - Negative Bedside Urine Urobilinogen - Negative Bedside Urine Nitrite - Negative Bedside Urine Leukocytes - Negative Esterase Imaging Data CT scan - abdomen/pelvis: Radiologist's Impression: PROCEDURE:? CT ABDOMEN PELVIS W CON ? INDICATIONS:? post colonoscopy pain dizzy ? TECHNIQUE:? After the administration of intravenous contrast, axial sections acquired from the lung bases to the pubic symphysis.? Coronal and sagittal reformats were performed.? For radiation dose reduction, the following was used:? automated exposure control, adjustment of mA and/or kV according to patient size.? ? COMPARISON:? [facility], CT, CT ABDOMEN PELVIS W CON, 12/05/2017, 14:11. ? FINDINGS: ? Lower thorax: The lung bases are clear.? Heart size normal.? No hiatal hernia. ? Liver:? Normal in size and attenuation. No contour deformity present. ? Biliary system:? No calcified cholelithiasis or pericholecystic inflammation.? No intra or extrahepatic bile duct dilatation. ? Pancreas:? Unremarkable without mass or inflammation evident. ? Spleen:? Normal in size and density. ? Adrenals:? Normal morphology and density. ? Reproductive system:? Unremarkable as visualized. ? Urinary system:? Normal renal size and attenuation. No renal calculi, hydronephrosis, or solid mass present.? Urinary bladder unremarkable. ? Gastrointestinal system:? The bowel is unremarkable without evidence of bowel obstruction or inflammation. The stomach appears unremarkable.? Multiple diverticula arise from the sigmoid colon without evidence of diverticulitis. ? ? Appendix:? No findings to suggest acute appendicitis. ? Peritoneal spaces:? No mesenteric or retroperitoneal adenopathy.? No free air.? No free fluid.? ? Vasculature:? The IVC, aorta and iliac vasculature are unremarkable. ? Abdominal wall:? Abdominal wall intact without evidence of ventral or inguinal hernias. ? Musculoskeletal:? Normal bone mineralization.? No acute fractures.? ? IMPRESSION: ? 1. No evidence of pneumoperitoneum, obstruction or abscess.? No acute findings. ? Approved by: Andrew Herr M.D. on 07/30/2022 at 12:23? CT scan - head: Radiologist's Impression: PROCEDURE:? CT HEAD/BRAIN WO CON ? INDICATIONS:? dizzy ? TECHNIQUE:? Noncontrast 4.5 mm thick angled axial sections acquired from the foramen magnum to the vertex, with coronal and sagittal reformats.? For radiation dose reduction, the following was used:? automated exposure control, adjustment of mA and/or kV according to patient size.? ? COMPARISON:? None. ? FINDINGS:? Image quality:? Excellent.? ? CSF spaces:? Basal cisterns are patent.? No extra-axial fluid collections.? Ventricles are normal in size and shape.? ? Brain:? No midline shift.? No intracranial masses or hemorrhage.? [place]-white matter interface is normal.? Moderate cerebral and cerebellar volume loss with multifocal white matter chronic ischemic change noted. ? Skull and face:? Calvarium and visualized facial bones are intact, without susp icious lesions.? ? Sinuses:? Visualized sinuses and mastoids are clear.? ? IMPRESSION: ? 1. Atrophy and chronic ischemic change without intracranial hemorrhage or mass effect ? Approved by: Andrew Herr M.D. on 07/30/2022 at 12:28? Chest x-ray: Radiologist's Impression: PROCEDURE:? XR CHEST 1V ? INDICATIONS:? chest pain ? TECHNIQUE:? One view of the chest was acquired.? ? COMPARISON:? None. ? FINDINGS:? ? Surgical changes and devices:? None.? ? Lungs and pleura:? Lungs are clear.? No pleural effusions or pneumothorax.? ? Mediastinum:? Mediastinal contours appear normal.? Heart size is normal.? ? Bones and chest wall:? No suspicious bony lesions.? Overlying soft tissues appear unremarkable.? ? IMPRESSION:? No acute cardiopulmonary findings ? ? ? Approved by: Andrew Herr M.D. on 07/30/2022 at 11:33? CTA - brain/neck: Radiologist's Impression: PROCEDURE:? CT ANGIO HEAD AND NECK ? INDICATIONS:? dizzy ? TECHNIQUE:? Pre-contrast 4.5 mm thick sections acquired from the foramen magnum to the vertex.? After the administration of intravenous contrast, 1 mm thick sections acquired from the aortic arch through the [place] of [place].? Post-contrast 4.5 mm thick sections then re- acquired from the foramen magnum to the vertex.? MIP reformats of the arterial vasculature were utilized.? For radiation dose reduction, the following was used:? automated ex posure control, adjustment of mA and/or kV according to patient size.? ? COMPARISON:? None. ? FINDINGS: ? Cerebral CT Angiogram: ? Internal carotid arteries:? No acute findings.? Intracranial ICA are patent with no significant stenosis.? No occlusion.? No aneurysm. ? Anterior cerebral arteries:? Unremarkable.? No significant stenosis.? No occlusion.? No aneurysm. ? Middle cerebral arteries:? Unremarkable.? No significant stenosis.? No occlusion.? No aneurysm. ? Posterior cerebral arteries:? Unremarkable.? No significant stenosis.? No occlusion.? No aneurysm. ? Basilar artery:? Unremarkable.? No significant stenosis.? No occlusion.? No aneurysm. ? Vertebral arteries:? Unremarkable as visualized. ? Dural venous sinuses:? Unremarkable given phase of enhancement. ? Other:? Arterial phase brain parenchyma is unremarkable. ? Neck CT Angiogram: ? Internal carotid arteries:? Unremarkable.? No significant stenosis.? No dissection or occlusion. ? Common carotid arteries:? Unremarkable.? No significant stenosis.? No dissection or occlusion. ? External carotid arteries:? Unremarkable.? No occlusion. ? Vertebral arteries:? Unremarkable.? No significant stenosis.? No dissection or occlusion. ? Other:? Degenerative disc disease and arthropathy in the cervical spine as sociated with ossification of the posterior longitudinal ligament results in severe central stenosis at C4-5, C5-6 and moderate stenosis at C6-7 ? Aortic Arch and Mediastinum:? Partially visualized aortic arch unremarkable without evidence of aneurysm. Origins of the great vessels unremarkable. ? IMPRESSION: ? 1. Unremarkable CT angiogram head and neck without large vessel occlusion, aneurysm or vascular malformation ? 2. 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 ? Note: Any reported proximal ICA stenosis was calculated using NASCET guidelines.? Approved by: Andrew Herr M.D. on 07/30/2022 at 14:15 ECG Data Interpretation: Normal sinus rhythm P waves are seen in V4 V5 V2 difficult to see in lead 2 but do not agree with junctional rhythm. No ST changes no appreciable AV or SA block. MDM Narrative Medical decision making narrative: Patient is a 71-year-old male history of hyperlipidemia, presenting today with dizziness. It does to be a little bit worse upon standing and with position. Not hypotensive in fact he is hypertensive. He really does not have any focal deficits NIH stroke scale is 0. Possible posterior stroke versus vertigo. So thought to be slightly dehydrated from recent colonoscopy preparation. Although he reports that he was at his normal state of health yesterday. Blood work is overall reassuring. No leukocytosis no anemia no electrolyte abnormality or CALLUM negative troponin. Initial head CT and chest x-ray were negative. After a L of IV fluids attempted ambulation with patient extremely dizzy not able to stand. He is given meclizine wanted to get an MRI however patient is extremely claustrophobic he adamantly refused the MRI even with medication. He apparently tried this once before for his back had a go to [facility] MRI done in [place] and that was even for him. He was agreeable to a CT angio. CT angio did not have the images but radiology read as negative he also has no large vessel occlusion. Patient ambulated after meclizine doing significantly better. Would like to go home. Based on patient's symptoms of dizziness worse with position and better with meclizine I suspect that this may be related to vertigo. However I did discuss with patient and possibility of posterior stroke although my suspicion is low. Discharge Plan Departure Patient Disposition: Home Clinical Impression: Vertigo Instructions: DI for Vertigo Activity Restrictions/Additional Instructions: *You have been diagnosed with vertigo *What to do: At this time recommend going home resting trying to get to sleep hopefully this resolves on its own. Please stay hydrated. *Continue to take medications as directed --> [facility] [place] Meclizine 25 mg every 8 hours if needed for dizziness Zofran 4 mg every 8 hours if needed for nausea or vomiting *Follow up with your primary care provider in 2-3 days or call [phone] *Return to ER if you should have increased dizziness weakness numbness tingling or any new, worsening or concerning symptoms Prescriptions: New meclizine 25 mg tablet 25 mg PO TID PRN (Reason: dizziness) Qty: 10 0RF ondansetron 4 mg tablet,disintegrating 4 mg PO Q8H PRN (Reason: nausea and vomiting) Qty: 10 0RF No Action arginine (L-arginine) 500 mg capsule PO atorvastatin [Lipitor] 20 mg tablet 20 mg PO DAILY Qty: 90 3RF PreserVision AREDS-2 [id number] Capsule 1 tab PO BID Fiber (psyllium husk-sugar) 3.4 gram/7 gram powder 1 tbsp PO BID Qty: 822 0RF Referrals: Jb Joy MD [Primary Care Provider] - Stand Alone Forms: Patient Portal/API
--- NOTE | 2022-07-30 10:43 | DI.CT.S_ITS ---
PROCEDURE: CT HEAD/BRAIN WO CON INDICATIONS: dizzy TECHNIQUE: Noncontrast 4.5 mm thick angled axial sections acquired from the foramen magnum to the vertex, with coronal and sagittal reformats. For radiation dose reduction, the following was used: automated exposure control, adjustment of mA and/or kV according to patient size. COMPARISON: None. FINDINGS: Image quality: Excellent. CSF spaces: Basal cisterns are patent. No extra-axial fluid collections. Ventricles are normal in size and shape. Brain: No midline shift. No intracranial masses or hemorrhage. [place]-white matter interface is normal. Moderate cerebral and cerebellar volume loss with multifocal white matter chronic ischemic change noted. Skull and face: Calvarium and visualized facial bones are intact, without suspicious lesions. Sinuses: Visualized sinuses and mastoids are clear. IMPRESSION: 1. Atrophy and chronic ischemic change without intracranial hemorrhage or mass effect Approved by: Andrew Herr M.D. on 07/30/2022 at 12:28
--- NOTE | 2022-07-30 10:43 | DI.CT.S_ITS ---
PROCEDURE: CT ABDOMEN PELVIS W CON INDICATIONS: post colonoscopy pain dizzy TECHNIQUE: After the administration of intravenous contrast, axial sections acquired from the lung bases to the pubic symphysis. Coronal and sagittal reformats were performed. For radiation dose reduction, the following was used: automated exposure control, adjustment of mA and/or kV according to patient size. COMPARISON: [facility], CT, CT ABDOMEN PELVIS W CON, 12/05/2017, 14:11. FINDINGS: Lower thorax: The lung bases are clear. Heart size normal. No hiatal hernia. Liver: Normal in size and attenuation. No contour deformity present. Biliary system: No calcified cholelithiasis or pericholecystic inflammation. No intra or extrahepatic bile duct dilatation. Pancreas: Unremarkable without mass or inflammation evident. Spleen: Normal in size and density. Adrenals: Normal morphology and density. Reproductive system: Unremarkable as visualized. Urinary system: Normal renal size and attenuation. No renal calculi, hydronephrosis, or solid mass present. Urinary bladder unremarkable. Gastrointestinal system: The bowel is unremarkable without evidence of bowel obstruction or inflammation. The stomach appears unremarkable. Multiple diverticula arise from the sigmoid colon without evidence of diverticulitis. Appendix: No findings to suggest acute appendicitis. Peritoneal spaces: No mesenteric or retroperitoneal adenopathy. No free air. No free fluid. Vasculature: The IVC, aorta and iliac vasculature are unremarkable. Abdominal wall: Abdominal wall intact without evidence of ventral or inguinal hernias. Musculoskeletal: Normal bone mineralization. No acute fractures. IMPRESSION: 1. No evidence of pneumoperitoneum, obstruction or abscess. No acute findings. Approved by: Andrew Herr M.D. on 07/30/2022 at 12:23
[2022-07-30] MEDS: SODIUM CHLORIDE 0.9% 1,000 ML 1000 ML IV (10:49)
[2022-07-30] MEDS: ONDANSETRON 4 MG/2 ML INJ IV (10:50)
[2022-07-30 10:51] LABS: INR 1.1 (0.9-1.3); Prothrombin Time 12.7 SECONDS (10.1-12.7)
[2022-07-30 10:54] LABS: Alanine Aminotransferase 25 IU/L (<50); Albumin 4.3 g/dL (3.5-5.0); Albumin Globulin Ratio 1.3 (1.0-2.8); Alkaline Phosphatase 27 U/L (38-126); Aspartate Aminotransferase 39 IU/L (17-59); BUN Creatinine Ratio 27.3 (6-22); Bilirubin Total 1.1 mg/dL (0.2-1.3); Blood Urea Nitrogen 21 mg/dL (9-20); Calcium 8.9 mg/dL (8.4-10.2); Carbon Dioxide 27 mmol/L (22-32); Chloride 107 mmol/L (98-107); Creatine Kinase 209 U/L (55-170); Estimated Glomerular Filt Rate > 60 mL/min (>60); Globulin 3.3 g/dL (1.7-4.1); Glucose 121 mg/dL (80-110); Lactate (Lactic Acid) 1.6 mmol/L (0.7-2.1); Lipase 66 U/L (23-300); Magnesium 2.3 mg/dL (1.6-2.3); PTT Partial Thromboplastin Tim 33 SECONDS (26-36); Sodium 140 mmol/L (137-145); Total Protein 7.6 g/dL (6.3-8.2)
[2022-07-30 10:56] LABS: Potassium 4.4 mmol/L (3.4-5.1)
[2022-07-30 10:57] LABS: COVID19 -Nasal RAPID Negative (Negative)
[2022-07-30 11:05] LABS: Troponin I < 0.012 ng/mL (0.01-0.034)
[2022-07-30 11:09] LABS: CKMB % Relative Index 1.5 % (1.5-5.0); Creatine Kinase MB 3.13 ng/mL (<2.37); HEMOLYSIS 103 (0-50)
[2022-07-30 12:36] LABS: RBC Urine None Seen (0-5/HPF)
[2022-07-30 12:37] LABS: Bacteria Urine None Seen; Culture Indicated Urine Cult Not Indicated; WBC Urine 0-1/HPF (0-5/HPF)
--- NOTE | 2022-07-30 13:45 | DI.CT.S_ITS ---
PROCEDURE: CT ANGIO HEAD AND NECK INDICATIONS: dizzy TECHNIQUE: Pre-contrast 4.5 mm thick sections acquired from the foramen magnum to the vertex. After the administration of intravenous contrast, 1 mm thick sections acquired from the aortic arch through the [place] of [place]. Post-contrast 4.5 mm thick sections then re-acquired from the foramen magnum to the vertex. MIP reformats of the arterial vasculature were utilized. For radiation dose reduction, the following was used: automated exposure control, adjustment of mA and/or kV according to patient size. COMPARISON: None. FINDINGS: Cerebral CT Angiogram: Internal carotid arteries: No acute findings. Intracranial ICA are patent with no significant stenosis. No occlusion. No aneurysm. Anterior cerebral arteries: Unremarkable. No significant stenosis. No occlusion. No aneurysm. Middle cerebral arteries: Unremarkable. No significant stenosis. No occlusion. No aneurysm. Posterior cerebral arteries: Unremarkable. No significant stenosis. No occlusion. No aneurysm. Basilar artery: Unremarkable. No significant stenosis. No occlusion. No aneurysm. Vertebral arteries: Unremarkable as visualized. Dural venous sinuses: Unremarkable given phase of enhancement. Other: Arterial phase brain parenchyma is unremarkable. Neck CT Angiogram: Internal carotid arteries: Unremarkable. No significant stenosis. No dissection or occlusion. Common carotid arteries: Unremarkable. No significant stenosis. No dissection or occlusion. External carotid arteries: Unremarkable. No occlusion. Vertebral arteries: Unremarkable. No significant stenosis. No dissection or occlusion. Other: Degenerative disc disease and arthropathy in the cervical spine associated with ossification of the posterior longitudinal ligament results in severe central stenosis at C4-5, C5-6 and moderate stenosis at C6-7 Aortic Arch and Mediastinum: Partially visualized aortic arch unremarkable without evidence of aneurysm. Origins of the great vessels unremarkable. IMPRESSION: 1. Unremarkable CT angiogram head and neck without large vessel occlusion, aneurysm or vascular malformation 2. Advanced degenerative disc disease and arthropathy with short segment ossification posterior longitudinal ligament results in severe central stenosis C4-5 and C5-6 Note: Any reported proximal ICA stenosis was calculated using NASCET guidelines. Approved by: Andrew Herr M.D. on 07/30/2022 at 14:15
[2022-07-30] MEDS: MECLIZINE HCL 12.5 MG TABLET 25 MG PO (13:50)
== END 2022-07-30 16:10 | disposition home or self-care (01) ==
PROVIDERS: Emergency Provider Emergency Medicine; PCP Family Medicine
DX: R42 Dizziness and giddiness (principal); I10 Essential (primary) hypertension; R07.9 Chest pain, unspecified; Z20.822 Contact with and (suspected) exposure to COVID-19
CPT/HCPCS: 36415; 70450; 70496; 70498; 71045; 74177; 80053; 81003; 81015; 82550; 82553; 83605; 83690; 83735; 84484; 85025; 85610; 85730; 87635; 93005; 93010; 96361; 96374; 99284; 99285; C9803; J2405; Q9967

== ENCOUNTER → 2023-08-15 08:26 | Outpatient (CLI) | payer MEDICARE, OTHER, SELFPAY ==
[2023-08-15 09:42] LABS: Add Manual Diff / Slide Review NO; Basophils Absolute Auto 100 /uL (0-100); Eosinophils Absolute Auto 200 /uL (0-450); Eosinophils Percent Auto 3.5 % (2-4); Hematocrit 39.1 % (41-53); Hemoglobin 13.2 g/dL (13.5-17.5); Lymphocytes Absolute Auto 1200 /uL (1100-4500); Lymphocytes Percent Auto 20.4 % (25-40); Mean Corpuscular HGB Conc 33.7 % (30-36); Mean Corpuscular Hemoglobin 31.7 PG (26-34); Mean Corpuscular Volume 93.9 fL (80-100); Monocytes Absolute Auto 700 /uL (0-900); Monocytes Percent Auto 12.1 % (3-14); Neutrophils Absolute Auto 3700 /uL (1500-7000); Platelet Count 169 X10^3/uL (150-400); Red Blood Cell Count 4.17 X10^6/uL (4.5-5.9); Red Cell Distribution Width 13.4 % (11.6-14.8); White Blood Cell Count 5.9 X10^3/uL (4.5-11.0)
[2023-08-15 10:07] LABS: Microalbumin Urine Random < 0.6 mg/dL (0-1.6)
[2023-08-15 10:07] LABS: Alanine Aminotransferase 20 IU/L (<50); Albumin 4.1 g/dL (3.5-5.0); Albumin Globulin Ratio 1.7 (1.0-2.8); Alkaline Phosphatase 45 U/L (38-126); Aspartate Aminotransferase 26 IU/L (17-59); BUN Creatinine Ratio 21.3 (6-22); Bilirubin Total 1.1 mg/dL (0.2-1.3); Blood Urea Nitrogen 17 mg/dL (9-20); Calcium 8.7 mg/dL (8.4-10.2); Carbon Dioxide 28 mmol/L (22-32); Chloride 108 mmol/L (98-107); Cholesterol 126 mg/dL (140-199); Estimated Glomerular Filt Rate > 60 mL/min (>60); Globulin 2.4 g/dL (1.7-4.1); Glucose 105 mg/dL (80-110); HDL Cholesterol 45 mg/dL (40-60); HEMOLYSIS < 15 (0-50); LDL Cholesterol Calculated 66 mg/dL (<100); Potassium 4.1 mmol/L (3.4-5.1); Sodium 141 mmol/L (137-145); Total Protein 6.5 g/dL (6.3-8.2); Triglycerides 73 mg/dL (35-150)
[2023-08-15 10:31] LABS: Prostate Specific Antigen Scrn 0.705 ng/mL (0.1-4.0); TSH w/ Reflex to FT4 4.94 uIU/mL (0.47-4.68)
[2023-08-15 11:00] LABS: Free T4, Direct Thyroxine 0.96 ng/dL (0.78-2.19)
[2023-08-15 22:21] LABS: Hep C Virus Ab w/Reflex Quant NEGATIVE s/c (NEGATIVE)
[2023-08-16 06:18] LABS: Apolipoprotein B 63 mg/dL (<90)
== END ==
PROVIDERS: PCP Family Medicine; Referring Provider Family Medicine; Visit Provider Family Medicine
DX: Z12.5 Encounter for screening for malignant neoplasm of prostate (principal); I10 Essential (primary) hypertension; M25.571 Pain in right ankle and joints of right foot; E78.5 Hyperlipidemia, unspecified; M54.40 Lumbago with sciatica, unspecified side; G89.29 Other chronic pain
CPT/HCPCS: 36415; 80053; 80061; 82043; 82172; 82570; 84439; 84443; 85025; 86803; G0103

== ENCOUNTER 2024-11-11 12:35 | Emergency (ER) | payer MEDICARE, OTHER, SELFPAY ==
[2024-11-11 12:59] VITALS: BP 153/85; PULSE 61; RESP 16; TEMP 36.6; O2SAT 98; BMI 33.9
--- NOTE | 2024-11-11 16:00 | ED_ITS ---
<Statement entered by Jann Gardiner MD - 12/03/24 07:33> I was personally available in the department for consultation of the time the patient was seen HPI - Skin/Abscess/Foreign Bdy General Chief complaint: Skin/Abscess/Foreign Body Stated complaint: swelling in rectum area x 4 days Time Seen by Provider: 11/11/24 15:41 Source: patient Mode of arrival: Ambulatory Limitations: no limitations History of Present Illness HPI narrative: 74-year-old male with past medical history hyperlipidemia presents to the ED with 1 day of rectal lump after passing stool. Patient states he has never had a history of hemorrhoids in the past. Patient does endorse some on and off constipation that he has had over the last several weeks. Patient does endorse straining to pass stool. No fever, chills, chest pain, shortness of breath, nausea, vomiting, abdominal pain, lightheadedness, dizziness, syncope. Related Data Home Medications ?Medication ?Instructions ?Recorded ?Confirmed vit C 250 mg-vit E 90 mg-zinc 40 1 tab PO BID 12/05/17 07/24/24 mg-copper 1 [id number] capsule (PreserVision AREDS-2) Previous Rx's ?Medication ?Instructions ?Recorded atorvastatin 20 mg tablet (Lipitor) 20 mg PO DAILY #90 tabs 07/24/24 Allergies Allergy/AdvReac Type Severity Reaction Status Date / Time No Known Drug Allergies Allergy Verified 11/11/24 12:59 Review of Systems Constitutional Constitutional: Denies chills, Denies fatigue, Denies fever(s), Denies frequent falls, Denies lethargy and Denies weakness Eyes Eyes: Denies change in vision, Denies eye discharge, Denies irritation and Denies loss of vision ENT Ears, Nose, Mouth, and Throat: Denies change in voice, Denies dizziness, Denies neck pain, Denies sore throat and Denies throat swelling Cardiovascular Cardiovascular: Denies chest pain, Denies irregular heart rhythm, Denies lightheadedness, Denies palpitations, Denies dyspnea, Denies dyspnea on exertion and Denies orthopnea Respiratory Respiratory: Denies cough, Denies dyspnea, Denies dyspnea on exertion and Denies wheezing Gastrointestinal Gastrointestinal: Denies abdominal pain, Denies change in bowel habits, Reports constipation, Denies diarrhea, Denies nausea and Denies vomiting Comments: rectal lump Musculoskeletal Musculoskeletal: Denies neck pain and Denies numbness Integumentary/Breasts Skin/Breast: Denies pruritus, Denies erythema, Denies rash and Denies wounds Neurologic Neurologic: Denies behavioral changes, Denies confusion, Denies dizziness, Denies frequent falls, Denies loss of vision, Denies numbness and Denies weakness Psychiatric Psychiatric: Denies anxiety, Denies behavioral changes, Denies confusion, Denies depression, Denies homicidal ideation and Denies suicidal ideation Endocrine Endocrine: Denies fatigue, Denies flushing and Denies palpitations Hematologic/Lymphatic Hematologic/Lymphatic: Denies easy bruising Allergic/Immunologic Allergic/Immunologic: Denies urticaria, Denies throat swelling and Denies wheezing Patient History Medical History Arthritis of knee (03/16/15) Basal cell carcinoma Chronic low back pain with sciatica 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 Mother No problems noted. Social History household members: spouse alcohol intake: never substance use type: does not use Smoking Status: Never smoker alcohol intake frequency: holidays/special occasions only Exam Narrative Exam Narrative: Const General:?cooperative, healthy appearing and comfortable [facility] Head:?normal to inspection Ears:?hearing grossly normal bilaterally Nose:?external nose normal Face and sinus:?normal facial exam and sinuses nontender Mouth:?oral mucosae normal Throat:?posterior oropharynx normal Eyes General:?appearance normal, both eyes and all related structures Neck Neck:?normal visual inspection and no lymphadenopathy noted Resp Effort & Inspection:?normal respiratory effort Auscultation:?clear to auscultation bilaterally Cardio Rate:?regular rate Rhythm:?regular rhythm GI External rectal exam shows a nonthrombosed hemorrhoid. Abdomen is benign. Neuro General:?patient alert, patient awake and patient oriented x3 Initial Vital Signs Initial Vital Signs: Vital Signs Temperature 97.8 F 11/11/24 12:59 Pulse Rate 61 11/11/24 12:59 Respiratory Rate 16 11/11/24 12:59 Blood Pressure 153/85 H 11/11/24 12:59 Pulse Oximetry 98 11/11/24 12:59 Oxygen Delivery Method Room Air 11/11/24 12:59 Course Vital Signs Vital signs: Vital Signs - 8 hr 11/11/24 12:59 Temperature 97.8 F Pulse Rate 61 Respiratory Rate 16 Blood Pressure 153/85 H Pulse Oximetry 98 Oxygen Delivery Method Room Air MDM - Skin/Abscess/Foreign Bdy MDM Narrative Medical decision making narrative: 74-year-old male with past medical history hyperlipidemia presents to the ED with 1 day of rectal lump after passing stool. Physical exam is consistent with a hemorrhoid that is not thrombosed. Counseled patient on keeping the stool soft, avoiding straining, laxatives, hemorrhoid cream, increasing fiber and increasing water intake. Recommend follow-up with PCP as soon as possible. ED return precautions discussed with patient. Patient verbalized understanding. Medical records reviewed: Yes Discharge Plan Departure Patient Disposition: Home Clinical Impression: Hemorrhoid Qualifiers: Hemorrhoid type: unspecified Qualified Code(s): K64.9 - Unspecified hemorrhoids Instructions: DI for Hemorrhoids Activity Restrictions/Additional Instructions: You were evaluated in the ED today for a rectal lump. Physical exam is consistent with a hemorrhoid. Hemorrhoids are most commonly caused by hard stools, straining to pass the stools. Treatment for hemorrhoids is aimed at keeping the stools consistently soft. You may take MiraLax and Dulcolax nightly for this. It is also important for you to increase both your water and fiber intake together to avoid constipation. You may apply a [id number] hemorrhoid cream for the next 3-5 days to shrink the hemorrhoids. Sitz baths will also be helpful. Wiping the rectal area with witch Kiera pads will help calm the hemorrhoids down as well. Please follow-up with your PCP as soon as possible. Return to the ED if you have worsening symptoms. Prescriptions: No Action atorvastatin [Lipitor] 20 mg tablet 20 mg PO DAILY Qty: 90 3RF PreserVision AREDS-2 [id number] Capsule 1 tab PO BID Referrals: Jb Joy MD [Primary Care Provider, [facility]] Stand Alone Forms: Patient Portal/API
[2024-11-11 16:34] VITALS: BP 191/91; PULSE 57; RESP 18; O2SAT 99
== END 2024-11-11 16:34 | disposition home or self-care (01) ==
PROVIDERS: Emergency Provider Student in an Organized Health Care Education/Training Program; PCP Family Medicine
DX: K64.9 Unspecified hemorrhoids (principal)
CPT/HCPCS: 99281